=== PATIENT | female | born 1970 | race Caucasian/White ===

== ENCOUNTER 2019-02-19 07:33 | Emergency (ER) | payer BC, SELFPAY ==
[2019-02-19 07:36] VITALS: BP 167/85; PULSE 84; RESP 16; TEMP 36.6; O2SAT 99; BMI 26.2
[2019-02-19 07:47] VITALS: O2SAT 98
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
[2019-02-19] MEDS: oxyCODONE 5 MG Tablet 10 MG PO (08:02)
[2019-02-19] MEDS: Ketorolac 60 MG/2 ML Vial IM (08:02)
[2019-02-19 09:50] VITALS: BP 174/95; PULSE 83; RESP 16; O2SAT 97
== END 2019-02-19 09:51 | disposition home or self-care (01) ==
PROVIDERS: Emergency Provider Emergency Medicine; Family Provider Family Medicine; PCP Family Medicine
DX: S16.1XXA Strain of muscle, fascia and tendon at neck level, initial encounter (principal); S40.012A Contusion of left shoulder, initial encounter; S70.11XA Contusion of right thigh, initial encounter; R06.00 Dyspnea, unspecified; V43.52XA Car driver injured in collision with other type car in traffic accident, initial encounter; Y93.9 Activity, unspecified; Y92.9 Unspecified place or not applicable; I10 Essential (primary) hypertension; F41.9 Anxiety disorder, unspecified; F32.9 Major depressive disorder, single episode, unspecified; Z79.899 Other long term (current) drug therapy; Z72.0 Tobacco use
CPT/HCPCS: 71101; 72040; 73030; 96372; 99283

== ENCOUNTER 2019-02-26 23:45 | Emergency (ER) | payer BC, SELFPAY ==
[2019-02-26 23:46] VITALS: BP 164/102; PULSE 102; RESP 15; TEMP 36.8; BMI 26.2
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
[2019-02-27] MEDS: Ondansetron 4 MG/2 ML Vial IV (00:54)
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
[2019-02-27] MEDS: Morphine 4 MG/ML Syringe IV (00:55)
--- NOTE | 2019-02-27 02:04 | ED.DEP ---
ED Disposition - Plan for ED Patient: Instructions: ED Contusion Chest Wall Prescriptions: Oxycodone HCl/Acetaminophen [Percocet 5/325] 1 tablet PO Q6H PRN PRN 2 Days #8 tablet PRN Reason: Pain Referrals: Josh Mazariegos MD [Primary Care Provider] -
[2019-02-27] MEDS: oxyCODONE 5 MG Tablet PO (02:31)
[2019-02-27 02:34] VITALS: RESP 16
== END 2019-02-27 02:35 | disposition home or self-care (01) ==
LOC: ED 02-27 00:40
PROVIDERS: Emergency Provider Emergency Medicine; Family Provider Family Medicine; PCP Family Medicine
DX: S20.212A Contusion of left front wall of thorax, initial encounter (principal); R20.2 Paresthesia of skin; R59.0 Localized enlarged lymph nodes; M41.84 Other forms of scoliosis, thoracic region; V89.2XXA Person injured in unspecified motor-vehicle accident, traffic, initial encounter; Y93.9 Activity, unspecified; Y92.9 Unspecified place or not applicable; K21.9 Gastro-esophageal reflux disease without esophagitis; I10 Essential (primary) hypertension; Z79.899 Other long term (current) drug therapy
CPT/HCPCS: 71275; 96374; 96375; 99284; Q9967; A4216; J2405

== ENCOUNTER 2019-06-21 10:30 | Emergency (ER) | payer SELFPAY ==
[2019-06-21 10:32] VITALS: BP 153/93; PULSE 103; RESP 18; TEMP 36.2; O2SAT 98; BMI 25.4
--- NOTE | 2019-06-21 10:48 | CT_ITS ---
STUDY: CT ABDOMEN AND PELVIS WITH CONTRAST REASON FOR EXAM: Female, 48 years old. Central low back pain RADIATION DOSAGE (If Supplied By Facility): CTDIvol = ( 10.19 ) mGy, DLP = ( 437.27 ) mGycm TECHNIQUE: Transaxial images were obtained from the dome of the diaphragm to the symphysis pubis without oral contrast. 100 IV/Oral Isovue 250 was administered. Sagittal and coronal images were reconstructed. Individualized dose optimization techniques were used for this CT. COMPARISON: None. FINDINGS: The visualized lung bases are unremarkable. The visualized portions of the heart are within normal limits. Normal liver. Normal gallbladder and extrahepatic biliary system. Normal spleen. Normal pancreas. Normal bilateral adrenal glands. Normal right kidney. Normal left kidney. Normal visualized stomach. Normal small intestine. Normal colon. The appendix is visualized and appears normal. Normal abdominal aorta. Normal inferior vena cava. Normal retroperitoneum. Normal urinary bladder. Normal abdominal wall. There is levoscoliosis of the lumbar spine and mild dextroscoliosis of the lumbar spine. There is scoliosis rods of the thoracic spine. There is no acute fracture or subluxation CT/Abdomen/Pelvis WITH Contrast IMPRESSION: No acute abdominal or pelvic pathology. No fracture. Electronically Signed: Farhan Yan, at 12:57 EDT Tel , Service support ,
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
[2019-06-21 11:12] LABS: Absolute Lymphocyte Count 2.23 X10^3/uL (0.83-4.51); Absolute Neutrophil Count 4.1 X10^3/uL (2.0-7.7); Basophil# 0.02 X10^3/uL; Basophil% 0.3 % (0-1); Eosinophil# 0.13 X10^3/uL; Eosinophils% 1.9 % (0-5); Hematocrit 44.8 % (37-47); Hemoglobin 14.8 g/dL (12.0-15.0); Lymphocyte # 2.23 X10^3/ul (4.0); Lymphocyte % 32.7 % (19-41); Mean Corpuscular Hgb 30.6 pg (27.0-32.0); Mean Corpuscular Volume 92.6 fL (81-99); Mean Platelet Vol. 9.5 fl (6.2-12.0); Monocyte# 0.33 X10^3/uL; Monocyte% 4.8 % (0-10); NRBC Flagged by Analyzer 0 % (0-5); Neutrophil # 4.09 X10^3/uL (2.7-7.7); Neutrophil % 60.2 % (47-70); Platelet Count 313 K/mm3 (150-450); RBC Distribution Width CV 12.3 % (11.6-14.6); RBC Distribution Width SD 42.3 fl (35.1-43.9); Red Blood Count 4.84 M/mm3 (4.2-5.4); White Blood Count 6.8 K/mm3 (4.4-11.0)
[2019-06-21 11:27] LABS: AST(SGOT) 13 U/L (15-37); Alanine Aminotransfer ALT/SGPT 20 U/L (13-56); Albumin, Serum 3.9 g/dL (3.2-5.0); Alkaline Phosphatase 47 U/L (45-117); Anion Gap 3 (5-15); BUN 11 mg/dL (7-18); BUN/Creat Ratio 13.5 RATIO (10-20); Calcium,Total 9.5 mg/dL (8.5-10.1); Chloride 106 mmol/L (98-107); Creatinine, Serum 0.82 mg/dL (0.55-1.02); EST Glomerular Filtration Rate 80 mL/min (>60); Est Glom Filt Rate - Afr Amer 96 mL/min (>60); Globulin 3.8 g/dL (2.2-4.2); Glucose 126 mg/dL (74-106); Potassium 3.7 mmol/L (3.5-5.1); Protein, Total 7.7 g/dL (6.4-8.2); Sodium Level 139 mmol/L (136-145)
[2019-06-21 12:39] VITALS: BP 173/77; PULSE 83; RESP 16; O2SAT 98
[2019-06-21 13:18] VITALS: BP 171/71; PULSE 89; RESP 16; O2SAT 99
== END 2019-06-21 13:19 | disposition home or self-care (01) ==
PROVIDERS: Emergency Provider Emergency Medicine; Family Provider Family Medicine; PCP Family Medicine
DX: R10.31 Right lower quadrant pain (principal); R10.32 Left lower quadrant pain; R59.0 Localized enlarged lymph nodes; R63.4 Abnormal weight loss; R61 Generalized hyperhidrosis; R11.0 Nausea; R19.7 Diarrhea, unspecified; K21.9 Gastro-esophageal reflux disease without esophagitis; M54.5 Low back pain; F32.9 Major depressive disorder, single episode, unspecified; Z79.899 Other long term (current) drug therapy; F17.200 Nicotine dependence, unspecified, uncomplicated
CPT/HCPCS: 74177; 80053; 85025; 99283; Q9967; A4216

== ENCOUNTER → 2019-12-13 00:22 | Outpatient (REF) | payer SELFPAY | LOC: EDREF 00:22 | PROVIDERS: PCP Family Medicine; Visit Provider Emergency Medicine | DX: Z00.00 Encounter for general adult medical examination without abnormal findings (principal) ==

== ENCOUNTER 2020-06-03 21:59 | Emergency (ER) | payer OTHER, SELFPAY ==
[2020-06-03 22:01] VITALS: BP 157/92; PULSE 103; RESP 15; TEMP 36.6; O2SAT 96; BMI 24.5
--- NOTE | 2020-06-03 22:15 | ED.DCSUM_ITS ---
History of Present Illness Chief Complaint: Itching Informant: Patient Onset: Days Context: Gradual Onset Timing: Intermittent Current Severity: Moderate Maximum Severity: Moderate Narrative: The patient is an otherwise healthy 49-year-old female who presents to the emergency department with diffuse itching and bites. 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 She thinks that someone may have had bedbugs or scabies. She states that they did treat the area. About a week ago, she began to notice small bites on her arms and legs. She states over the past week they have worsened. She denies any fevers or chills. She denies any drainage from the area. She has tried topical cortisone with little improvement. Prior similar symptoms: No Recent Illness/Hospitalization: No Past Medical History - Allergies and Home Meds Allergies/Adverse Reactions: Allergies acetaminophen [From [place]] Adverse Reaction (Verified 06/03/20 22:05) Nausea/Vom/Diarrhea erythromycin base Adverse Reaction (Verified 06/03/20 22:05) Other NIGHTMARES hydrocodone [From [place]] Adverse Reaction (Verified 06/03/20 22:05) Nausea/Vom/Diarrhea ibuprofen [From Motrin] Adverse Reaction (Verified 06/03/20 22:05) Nausea/Vom/Diarrhea Primary Care Physician: Josh Mazariegos MD [Primary Care Provider] - Prior records reviewed: Yes Past Medical History: None Surgical History: no surgical history Smoking Status: Current some day smoker Review of Systems General: Denies: Chills, Fever, Sweats Eyes: Denies: Visual changes - bilaterally, Diplopia ENT: Denies: Rhinorrhea, Sore throat Cardiovascular: Denies: Chest pain, Palpitations Respiratory: Denies: Dyspnea, Cough, Dyspnea on exertion Gastrointestinal: Denies: Abdominal pain, Nausea, Vomiting, Diarrhea, Melena, Hematochezia Genitourinary: Denies: Dysuria, Hematuria, Frequency Musculoskeletal: Denies: Back pain, Extremity Pain Skin: Reports: Rash. Denies: Wounds Neurological: Denies: Headache, Weakness, Numbness Physical Exam Vital Signs/Narrative: Vital Signs Temp Pulse Resp BP Pulse Ox 06/03/20 22:01 97.9 F 103 H 15 157/92 H 96 Inital Vital Signs reviewed: Yes General: Well nourished, Well developed, No Acute Distress Head: Normocephalic, Atraumatic Eyes: Perrl, EOMI ENT: Moist mucous membranes, No rhinorrhea Neck: Supple, Nontender Cardiovascular: Regular rate, Regular rhythm, No murmurs Respiratory: No distress, CTA bilaterally, Chest nontender Abdomen: Soft, Nontender, Nondistended, Normal bowel sounds Back: Nontender, Normal Inspection Extremities: Nontender, No edema Skin: Normal color, Rash - Patient has multiple small areas of urticaria with central clearing into visible mites. There is no significant cellulitis. Neurological: Alert, Oriented x3, Cranial nerves II-XII grossly intact, Normal Strength, Normal Sensation Psychological: Normal affect, Normal Mood Diagnostic/Tx/Re-eval - Medical Decision Making Clinically, this does seem most consistent with scabies. I am going to treat the patient with permethrin. She does have rather significant immune response with urticaria. I will place her on 4 days of prednisone along with Vistaril to help with the itching. She was counseled on hygiene. The patient will be discharged home. Impression 1. Scabies ED Disposition - Plan for ED Patient: Instructions: Scabies Prescriptions: Prednisone [Deltasone] 40 mg PO DAILY #6 tab Prescription Printed Permethrin 5% [Permethrin] 60 gm TP X1 #1 cream..g. Prescription Printed hydrOXYzine pamoate capsule [Vistaril] 50 mg PO TID PRN PRN #30 cap PRN Reason: Itching Prescription Printed Referrals: Josh Mazariegos MD [Primary Care Provider] -
[2020-06-03] MEDS: predniSONE 20 MG Tablet 40 MG PO (22:27)
[2020-06-03] MEDS: hydrOXYzine PAM 25 MG Capsule 50 MG PO (22:47)
== END 2020-06-03 22:49 | disposition home or self-care (01) ==
LOC: ED 22:20
PROVIDERS: Emergency Provider Emergency Medicine; PCP Family Medicine
DX: B86 Scabies (principal); F17.200 Nicotine dependence, unspecified, uncomplicated
CPT/HCPCS: 99283

== ENCOUNTER 2020-06-05 20:04 | Emergency (ER) | payer OTHER, SELFPAY ==
[2020-06-05 20:04] VITALS: BP 161/103; PULSE 100; RESP 18; TEMP 36.4; O2SAT 98; BMI 24.3
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
--- NOTE | 2020-06-05 22:36 | ED.RN ---
PT LEFT AT 2135.
== END 2020-06-05 21:35 | disposition left against medical advice (07) ==
LOC: ED 21:49
PROVIDERS: Emergency Provider Emergency Medicine; PCP Family Medicine
DX: Z53.21 Procedure and treatment not carried out due to patient leaving prior to being seen by health care provider (principal)

== ENCOUNTER 2020-09-01 10:27 | Emergency (ER) | payer MEDICAID, SELFPAY ==
[2020-09-01 10:28] VITALS: BP 126/112; PULSE 100; RESP 18; TEMP 36.4; O2SAT 99; BMI 25.4
--- NOTE | 2020-09-01 11:10 | ED.DCSUM_ITS ---
History of Present Illness Informant: Patient Onset: Month(s) Context: Gradual Onset Timing: Continuous Quality: aching Location: bilateral wrists Current Severity: Severe Maximum Severity: Severe Worsened by: movement Relieved by: rest Associated Symptoms: denies Narrative: 50-year-old female who denies any significant past medical history presents to the emergency department with bilateral wrist pain. Patient states that she thinks she has carpal tunnel syndrome. 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 She is pretty confident it is carpal tunnel syndrome but has not gotten official diagnosis from a physician. No numbness tingling or weakness or trauma. She gets pain and swelling mostly after working throughout the day. No trauma. No constitutional symptoms. No rash. Prior similar symptoms: Yes Recent Illness/Hospitalization: No <Regino Davidson - Last Filed: 09/01/20 11:10> <Lionel Latham - Last Filed: 09/01/20 12:20> Chief Complaint: Upper Extremity Injury Past Medical History Prior records reviewed: Yes Past Medical History: None Surgical History: no surgical history Lives: With Family Smoking Status: Former smoker Alcohol: Occasional Drugs: None <Regino Davidson - Last Filed: 09/01/20 11:10> <Lionel Latham - Last Filed: 09/01/20 12:20> - Allergies and Home Meds Allergies/Adverse Reactions: Allergies acetaminophen [From [place]] Adverse Reaction (Verified 09/01/20 10:31) Nausea/Vom/Diarrhea erythromycin base Adverse Reaction (Verified 09/01/20 10:31) Other [place] hydrocodone [From [place]] Adverse Reaction (Verified 09/01/20 10:31) Nausea/Vom/Diarrhea ibuprofen [From Motrin] Adverse Reaction (Verified 09/01/20 10:31) Nausea/Vom/Diarrhea lorazepam [From Ativan] Adverse Reaction (Verified 09/01/20 10:31) Low blood pressure Primary Care Physician: Josh Mazariegos MD [Primary Care Provider] - Christopher Acosta MD [STAFF PHYSICIAN] - As soon as possible Review of Systems All systems negative except as indicated General: Denies: Chills, Fever, Sweats Eyes: Denies: Visual changes - bilaterally, Diplopia ENT: Denies: Rhinorrhea, Sore throat Cardiovascular: Denies: Chest pain, Palpitations Respiratory: Denies: Dyspnea, Cough, Dyspnea on exertion Gastrointestinal: Denies: Abdominal pain, Nausea, Vomiting, Diarrhea, Melena, Hematochezia Genitourinary: Denies: Dysuria, Hematuria, Frequency Musculoskeletal: Reports: Swelling, Extremity Pain. Denies: Myalgias, Arthralgias, Neck pain, Back pain Skin: Denies: Rash, Abscess, Abrasions, Wounds Neurological: Denies: Headache, Weakness, Numbness <Regino Davidson - Last Filed: 09/01/20 11:10> Physical Exam Vital Signs/Narrative: Vital Signs Temp Pulse Resp BP Pulse Ox 09/01/20 10:28 97.6 F L 100 18 126/112 H 99 Inital Vital Signs reviewed: Yes General: Well nourished, Well developed, No Acute Distress Head: Normocephalic, Atraumatic Eyes: Perrl, EOMI ENT: Moist mucous membranes, No rhinorrhea Neck: Supple, Nontender Cardiovascular: Regular rate, Regular rhythm, No murmurs Respiratory: No distress, CTA bilaterally, Chest nontender Abdomen: Soft, Nontender, Nondistended, Normal bowel sounds Back: Nontender, Normal Inspection Extremities: - - Patient has no swelling of either wrist. No redness. No warmth. Normal active range of motion. No rash. Normal radial pulses bilaterally. Normal capillary refill and sensation of all 5 fingers on both hands. Negative Tinel's sign bilaterally. There is no sign of trauma. Skin: Normal color, No rash Neurological: Alert, Oriented x3, Cranial nerves II-XII grossly intact, Normal Strength, Normal Sensation Psychological: Normal affect, Normal Mood <Regino Davidson - Last Filed: 09/01/20 11:10> Vital Signs/Narrative: Vital Signs Temp Pulse Resp BP Pulse Ox 09/01/20 10:28 97.6 F L 100 18 126/112 H 99 <Lionel Latham - Last Filed: 09/01/20 12:20> Diagnostic/Tx/Re-eval - Medical Decision Making Discussed with patient at this time that we are not completely certain her symptoms are due to carpal tunnel syndrome. She states that she has been diagnosed with arthritis in the past. Discussed this could be arthritis. Patient states that she needs something for pain because she has been taking Aleve and Tylenol does not work for her and she does not think that any gabapentin tramadol or [place] will help her pain either and think she needs Percocet. Discussed with patient at this time the acute treatment of arthritis is not Percocet. She was offered steroids. She states that she went to the urgent care 2 days ago they put her on steroids and it does not help. Discussed with patient we will have her take anti-inflammatories give her bilateral wrist splints and have her follow-up with orthopedics. <Regino Davidson - Last Filed: 09/01/20 11:10> - Medical Decision Making Seen and evaluated independently and in conjunction with physician assistant executive housekeeper. Agree with notes above unless documented otherwise. This patient has pressured speech, and a fairly passive-aggressive attitude regarding pain medications. With regards to her wrists, she states they have bothered her for over a year along with tingling in both hands all fingers for that period of time, but much worse in the past week or 2. She states she went to urgent care and he put her on some prednisone but it did not help at all, it also did not necessarily make anything worse. She states that they are warm and swollen which I do not objectively appreciate. There is no erythema, she has good range of motion of them although she states that it hurts when she does so, and a negative Tinel's over the median nerve tunnel bilaterally. Her Phalen's test is negative for paresthesias, just increases her wrist discomfort bilaterally. She states that she saw orthopedics and had a scope of one of her knees because of severe bilateral arthritis for someone her age. Unknown if that is related to the arthralgias she is having in her wrist, but I do not think she has septic arthritis, I think it is less likely that she has acute gout since prednisone did not help, and I do not think she needs narcotics for chronic pain which we discussed with her. We offered her anti-inflammatories and response along with ice packs which she had requested. She was then asking for a refill on scabies medication which she has no evidence of at this time so we declined that. <Lionel Latham - Last Filed: 09/01/20 12:20> ED Disposition <Regino Davidson - Last Filed: 09/01/20 11:10> <Lionel Latham - Last Filed: 09/01/20 12:20> - Plan for ED Patient: Disposition: Home or Assisted Living Diagnosis: Bilateral wrist pain, History of arthritis Instructions: ED Acute Pain [facility] Prescriptions: Naproxen [Naprosyn] 500 mg PO BID #14 tab Prescription Printed Referrals: Josh Mazariegos MD [Primary Care Provider] - Christopher Acosta MD [STAFF PHYSICIAN] - As soon as possible
--- NOTE | 2020-09-01 11:38 | ED.RN ---
PT REFUSED THE PRESCRIPTION STATING SHE CAN'T TAKE IT.
== END 2020-09-01 11:39 | disposition home or self-care (01) ==
PROVIDERS: Emergency Provider Physician Assistant Medical; PCP Family Medicine
DX: M25.531 Pain in right wrist (principal); M25.532 Pain in left wrist; M19.90 Unspecified osteoarthritis, unspecified site; Z87.891 Personal history of nicotine dependence
CPT/HCPCS: 99283

== ENCOUNTER 2022-03-11 01:47 | Emergency (ER) | payer MEDICAID, SELFPAY ==
[2022-03-11 01:54] VITALS: BP 156/81; PULSE 109; RESP 16; TEMP 36.7; O2SAT 100; BMI 23.0
--- NOTE | 2022-03-11 02:10 | CT_ITS ---
STUDY: CT BRAIN WITHOUT CONTRAST REASON FOR EXAM: Female, 51 years old. head injury RADIATION DOSAGE (If Supplied By Facility): CTDIvol = ( 44.99 ) mGy, DLP = ( 796.11 ) mGycm TECHNIQUE: Transaxial CT imaging of the brain was performed without administration of intravenous contrast material. Individualized dose optimization techniques were used for this CT. COMPARISON: No relevant priors. FINDINGS: Normal soft tissue structures. Normal calvarium. Normal size ventricles and extra-axial spaces for the patient''s age. Normal white matter tracts of the cerebral hemispheres. Normal basal ganglia and thalami. Normal brainstem. Normal cerebellum. There is no intracranial hemorrhage. There are no findings of an acute ischemic infarction. Normal visualized paranasal sinuses. CT/Brain/Head without Contrast IMPRESSION: Normal unenhanced CT scan of the brain. Electronically Signed: Rashaun Metcalf MD at 2:35 EDT ,
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
[2022-03-11] MEDS: Acetaminophen 325 MG Tablet 650 MG PO (02:16)
[2022-03-11 03:05] VITALS: BP 148/79; PULSE 100; RESP 16; O2SAT 97
== END 2022-03-11 03:07 | disposition home or self-care (01) ==
PROVIDERS: Emergency Provider Emergency Medicine; PCP Family Medicine; Visit Provider Emergency Medicine
DX: S00.83XA Contusion of other part of head, initial encounter (principal); I10 Essential (primary) hypertension; Z79.899 Other long term (current) drug therapy; Z87.891 Personal history of nicotine dependence; S40.811A Abrasion of right upper arm, initial encounter; S40.812A Abrasion of left upper arm, initial encounter; S00.81XA Abrasion of other part of head, initial encounter; S40.212A Abrasion of left shoulder, initial encounter; W22.8XXA Striking against or struck by other objects, initial encounter; W57.XXXA Bitten or stung by nonvenomous insect and other nonvenomous arthropods, initial encounter; R23.4 Changes in skin texture
CPT/HCPCS: 70450; 99282

== ENCOUNTER 2022-06-27 23:07 | Emergency (ER) | payer MEDICAID, SELFPAY ==
[2022-06-27 23:08] VITALS: BP 178/98; PULSE 99; RESP 16; TEMP 36.9; O2SAT 100; BMI 22.6
--- NOTE | 2022-06-27 23:43 | EX.ED.DYSGE1 ---
HPI History of Present Illness Chief Complaint: General Illness Informant: patient Onset/Context/Timing Onset: Days Context: Gradual Onset Current Severity: Mild Maximum Severity: Moderate Narrative Narrative: Patient presents with multiple complaints. She states been feeling very weak and tired over the past couple days. She had a mild cough with sore throat starting to lose her voice. She states she occasionally feels like she is wheezing but cannot find her albuterol inhaler at home. She has not noted a fever. She also complains of some pain in her right foot. She states she has nerve damage between her toes and will require cortisone injections periodically. She states that she needs to see her foot doctor for this. [facility] Medical History Hypertension Home Medications bupropion HCl 150 mg tablet,12 hr sustained-release 150 mg PO BID 02/19/19 [History Last Taken 08/31/20] etonogestrel 0.12 mg-ethinyl estradiol 0.015 mg/24 hr vaginal ring (NuvaRing) 1 ea VG X1 02/19/19 [History Last Taken Unknown] lisinopril 10 mg tablet (Prinivil) 10 mg PO DAILY 02/19/19 [History Last Taken 09/01/20] permethrin 5 % topical cream 60 gm TP X1 ##1 06/03/20 [Rx Last Taken 08/31/20] naproxen 500 mg tablet 500 mg PO BID #14 tabs 09/01/20 [Rx Last Taken Unknown] permethrin 5 % topical cream 1 applic topical Q14D 2 doses #60 grams 03/11/22 [Rx Last Taken Unknown] naproxen 500 mg tablet (Naprosyn) 500 mg PO BID PRN pain #20 tabs 06/28/22 [Rx Last Taken Unknown] Allergy/AdvReac Type Severity Reaction Status Date / Time acetaminophen [From [place]] AdvReac Nausea/Vom/ Verified 06/27/22 23:07 Diarrhea erythromycin base AdvReac Other Verified 06/27/22 23:07 hydrocodone [From [place]] AdvReac Nausea/Vom/ Verified 06/27/22 23:07 Diarrhea ibuprofen [From Motrin] AdvReac Nausea/Vom/ Verified 06/27/22 23:07 Diarrhea lorazepam [From Ativan] AdvReac Low blood Verified 06/27/22 23:07 pressure Social History Smoking Status: Former smoker ROS ROS ED Constitutional Constitutional ED: Denies chills or fever(s) Eyes Eyes: Denies change in vision or discharge from eye(s) ENT ENT ED: Reports sore throat; Denies discharge from eye(s) or rhinorrhea Cardiovascular Cardiovascular: Denies chest pain or palpitations Respiratory/Chest Respiratory/Chest: Reports cough; Denies dyspnea Gastrointestinal Gastrointestinal: Reports diarrhea and nausea; Denies abdominal pain or vomiting Genitourinary Genitourinary ED: Denies difficulty urinating or dysuria Musculoskeletal Musculoskeletal: Reports extremity pain; Denies back pain Integumentary Denies Abrasions or rash Neurologic Neurologic: Reports weakness; Denies headache(s) Psychiatric Psychiatric: Denies anxiety or depression Allergic/Immunologic Allergic/Immunologic ED: Denies lip swelling or urticaria EXAM Physical Exam Const Vital Signs: 06/27/22 23:08 Temperature 98.4 F Temperature Source Temporal Pulse Rate 99 Respiratory Rate 16 Blood Pressure 178/98 H Blood Pressure Mean 124 Pulse Ox 100 Oxygen Delivery Method Room Air Positive well nourished and well developed General Appearance ED: well developed HEENT Reports TM's clear and moist mucous membranes HEENT Narrative: Posterior pharynx exam normal. Uvula midline. Patient speaks with a strong voice and is tolerating secretions well. Tympanic Membrane ED: Yes TM's clear Eyes PERRL and EOMs intact bilaterally Neck no lymphadenopathy Chest Wall inspection of chest normal and palpation of chest normal Resp normal respiratory effort and clear to auscultation bilaterally Cardio regular rate and regular rhythm GI normal to inspection, nondistended, normoactive bowel sounds and non-tender Neuro oriented x3 Sensorium / Orientation: alert Psych mental status grossly normal Skin no rashes or lesions noted MDM MDM MDM Narrative Medical decision making narrative: Portable chest x-ray obtained along with COVID test. Treatment and Re-Evaluation Narrative: Rapid COVID test is negative. Chest x-ray per my interpretation shows chronic changes with no focal infiltrate. Test results discussed with the patient. I believe she has another viral illness. Supportive care is discussed. I will write her for naproxen which she has done well with in the past. Discharge Plan Triage Chief Complaint: General Illness ED Provider: Dana Anaya Dx/Rx/DC Orders Clinical Impression: Viral syndrome Instructions: ED Viral Syndrome (Adult) Prescriptions: New naproxen [Naprosyn] 500 mg tablet 500 mg PO BID PRN (Reason: pain) Qty: 20 0RF No Action bupropion HCl 150 MG tablet sustained-release 12 hr 150 mg PO BID lisinopril [Prinivil] 10 MG tablet 10 mg PO DAILY etonogestrel-ethinyl estradiol [NuvaRing] 1 EACH ring 1 ea VG X1 permethrin 60 GM cream 60 gm TP X1 Qty: 1 0RF naproxen 500 MG tablet 500 mg PO BID Qty: 14 0RF permethrin 5 % cream 1 applic topical Q14D Qty: 60 0RF Rx Instructions: apply second treatment 14 days after first treatment if live insects remain Primary Care Provider: Josh Mazariegos Referrals: Josh Mazariegos MD [Primary Care Provider] - 1 Week if not improving Disposition Disposition: Home, Self Care
--- NOTE | 2022-06-27 23:45 | RAD_ITS ---
EXAM: XR CHEST, 1 VIEW CLINICAL INDICATION: cough TECHNIQUE: Frontal view of the chest. This report was created using [employer] report generation technology. COMPARISON: 02/19/2019. FINDINGS: LUNGS AND PLEURAL SPACES: Unremarkable. No consolidation or edema. No pneumothorax. No effusion. HEART: Unremarkable. Cardiac silhouette not enlarged. MEDIASTINUM: Central airways and mediastinal contour are unremarkable. BONES/JOINTS: Stabilization rods in the thoracolumbar spine with moderate levoscoliosis. SOFT TISSUES: Unremarkable. RAD/Chest 1 View (Portable) IMPRESSION: No acute cardiopulmonary abnormality. Electronically Signed: Jeffrey Estevez MD at 0:22 EDT ,
[2022-06-28] MEDS: Naproxen 500 MG Tablet PO (00:23)
[2022-06-28 00:27] VITALS: BP 171/106
== END 2022-06-28 00:27 | disposition home or self-care (01) ==
PROVIDERS: Emergency Provider Emergency Medicine; PCP Family Medicine; Visit Provider Emergency Medicine
DX: B34.9 Viral infection, unspecified (principal); R05.9 Cough, unspecified; J02.9 Acute pharyngitis, unspecified; I10 Essential (primary) hypertension; Z79.899 Other long term (current) drug therapy; Z87.891 Personal history of nicotine dependence
CPT/HCPCS: 71045; 87811; 99283

== ENCOUNTER 2023-03-15 10:38 | Emergency (ER) | payer MEDICAID, SELFPAY ==
[2023-03-15 10:39] VITALS: BP 174/89; PULSE 108; RESP 18; TEMP 35.9; O2SAT 95
[2023-03-15 10:44] VITALS: BMI 28.7
--- NOTE | 2023-03-15 10:51 | ED.VIS.BACK ---
HPI History of Present Illness Chief Complaint: Back Informant: patient Onset/Context/Timing Onset: Days (3) Context: - (awoke w/ the pain) Timing: Continuous Quality: Aching Location: Lumbar (right) Current Severity: Severe Maximum Severity: Severe Worsened by: improves with Movement, Ambulation and Bending Relieved by: Remaining Still Associated Symptoms Associated Symptoms: Negative for Numbness, Tingling, Radiation to Right Leg, Radiation to Left Leg, Abdominal Pain, Dysuria, Unable to Ambulate, Unable to Transfer, Urinary Retention, Urinary Incontinence, Constipation or Fecal Incontinence Narrative Narrative: Patient presents with a chief complaint that her sciatica is worse. States 3 days ago she woke up with pain in her right low back, does not radiate into either lower extremity, she denies any bowel or bladder dysfunction it hurts more to move especially to walk up steps, she denies any injury or repetitive movements or heavy lifting the day before she woke up with this that she can recall. She has had pain in her back in the past that radiated down to her foot that was diagnosed clinically as sciatica, she has no radiation into the leg or the foot in the past 3 days. She denies any weakness or numbness in the lower extremities. She does have a history of having had back surgery due to a trauma when she was a child and states she has Brunson rods. [facility] Medical History (Updated 03/15/23 @ 11:[address] Lionel Latham MD) Hypertension Home Medications bupropion HCl 150 mg tablet,12 hr sustained-release 150 mg PO BID 02/19/19 [History Last Taken 08/31/20] etonogestrel 0.12 mg-ethinyl estradiol 0.015 mg/24 hr vaginal ring (NuvaRing) 1 ea VG X1 02/19/19 [History Last Taken Unknown] lisinopril 10 mg tablet (Prinivil) 10 mg PO DAILY 02/19/19 [History Last Taken 09/01/20] permethrin 5 % topical cream 60 gm TP X1 ##1 06/03/20 [Rx Last Taken 08/31/20] naproxen 500 mg tablet 500 mg PO BID #14 tabs 09/01/20 [Rx Last Taken Unknown] permethrin 5 % topical cream 1 applic topical Q14D 2 doses #60 grams 03/11/22 [Rx Last Taken Unknown] naproxen 500 mg tablet (Naprosyn) 500 mg PO BID PRN pain #20 tabs 06/28/22 [Rx Last Taken Unknown] oxycodone-acetaminophen 5 mg-325 mg tablet (Percocet) 1 tab PO Q8H PRN pain 2 days #6 tabs 03/15/23 [Rx Last Taken Unknown] Allergy/AdvReac Type Severity Reaction Status Date / Time acetaminophen [From [place]] AdvReac Nausea/Vom/ Verified 03/15/23 10:39 Diarrhea erythromycin base AdvReac Other Verified 03/15/23 10:39 hydrocodone [From [facility]] AdvReac Nausea/Vom/ Verified 03/15/23 10:39 Diarrhea ibuprofen [From [place]] AdvReac Nausea/Vom/ Verified 03/15/23 10:39 Diarrhea lorazepam [From Ativan] AdvReac Low blood Verified 03/15/23 10:39 pressure Surgical History (Updated 03/15/23 @ 10:[address] Lionel Latham MD) History of back surgery Social History Smoking Status: Current every day smoker tobacco type: cigarettes ROS ROS ED Constitutional Constitutional ED: Denies chills or fever(s) Gastrointestinal Gastrointestinal: Denies abdominal pain, constipation, fecal incontinence, nausea or vomiting Genitourinary Genitourinary ED: Reports other Details: no urinary retention ; Denies abdominal discomfort or urinary incontinence Musculoskeletal Musculoskeletal: Reports as per HPI and back pain; Denies neck pain Integumentary Denies rash or wounds Neurologic Neurologic: Denies headache(s), paresthesias or weakness EXAM Physical Exam Const Vital Signs: 03/15/23 10:39 Temperature 96.6 F L Temperature Source Temporal Pulse Rate 108 H Respiratory Rate 18 Blood Pressure 174/89 H Blood Pressure Mean 117 Pulse Ox 95 Oxygen Delivery Method Room Air Positive well nourished and well developed General Appearance ED: well developed and NAD HEENT Negative for trauma or tenderness Eyes PERRL and EOMs intact bilaterally Neck full ROM and supple GI normal to inspection, nondistended, normoactive bowel sounds, soft to palpation and non-tender Back/Spine normal to inspection Back/Spine Narrative: Main area of right lower back tenderness is at the right SI joint. There is minimal tenderness near the midline, there is no step-off or crepitance or rash or any other areas of bony tenderness. No tenderness in the lateral buttock/sciatic notch. Lumbar Spine / Lower Back: paraspinal muscle tenderness and straight leg raise negative bilaterally; Negative for ROM limited or lumbar spinal tenderness Extremity normal to inspection, full ROM and no pedal edema Neuro oriented x3 and no sensory deficits noted Sensorium / Orientation: alert Motor Exam: strength 5/5 throughout and clonus absent Deep Tendon Reflexes: Rt Patellar (L4): 2+, Lt Patellar (L4): 2+, Rt Ankle (S1): 2+ and Lt Ankle (S1): 2+ Deep Tendon Reflexes Back: Rt Patellar (L4): 2+, Lt Patellar (L4): 2+, Rt Ankle (S1): 2+ and Lt Ankle (S1): 2+ Plantar Reflex: Downgoing: bilateral Psych mental status grossly normal and thought process normal Skin no rashes or lesions noted and no wounds MDM MDM MDM Narrative Medical decision making narrative: I obtained a lumbosacral x-ray series, 3 views of mitral rotation showed chronic changes including spondylolisthesis L4 on L5 that looks relatively mild, but nothing acute as far as a compression fracture or major subluxation. Radiology in agreement. Patient admits that she is here for a work note for today because being on her feet is very painful with this condition, and in addition she make sure to note that her pressure is high probably because of the severity of the pain which is happened to her before. She is saying that she is not able to tolerate hydrocodone and for prescription analgesics, she needs oxycodone. I offered her tramadol, she states that does not help. I advised her that this is probably sacroiliitis, certainly it is not sciatica since it does not involve her lower extremity at all, and she certainly does not have any signs or symptoms of cauda equina syndrome here, and I reassured her I think this is something uncomfortable and not dangerous. With regards to sacroiliitis, it does not tend to significantly improve, such as sciatica, with narcotics, and I am not can to prescribe her a lot she understands that, her OARRS report was reviewed and essentially negative for the last year or 2, so I am okay prescribing her a short course which I will do but advised anti-inflammatories and outpatient follow-up with her PCP, and/or physical therapy and chiropractic. Radiography Diagnostic Testing: Clinical Impression(s) from Imaging Studies Lumbar Spine X-Ray 03/15/23 10:56 IMPRESSION: Grade 1 anterior spondylolisthesis of L4 on L5. Multilevel degenerative disc disease. Postsurgical changes of the thoracolumbar spine. Electronically Signed: Courtney Kingston MD at 11:27 EDT , Discharge Plan Triage Chief Complaint: Back Other Complaint: Lower Extremity Injury ED Provider: Lionel Latham Dx/Rx/DC Orders Clinical Impression: Sacroiliitis Instructions: ED Sacroiliitis Prescriptions: New oxycodone-acetaminophen [Percocet] 5-325 mg tablet 1 tab PO Q8H PRN (Reason: pain) 2 Days Qty: 6 0RF No Action bupropion HCl 150 MG tablet sustained-release 12 hr 150 mg PO BID lisinopril [Prinivil] 10 MG tablet 10 mg PO DAILY etonogestrel-ethinyl estradiol [NuvaRing] 1 EACH ring 1 ea VG X1 permethrin 60 GM cream 60 gm TP X1 Qty: 1 0RF naproxen 500 MG tablet 500 mg PO BID Qty: 14 0RF permethrin 5 % cream 1 applic topical Q14D Qty: 60 0RF Rx Instructions: apply second treatment 14 days after first treatment if live insects remain naproxen [Naprosyn] 500 mg tablet 500 mg PO BID PRN (Reason: pain) Qty: 20 0RF Stand Alone Forms: ED Work / School Excuse Primary Care Provider: Josh Mazariegos Referrals: Josh Mazariegos MD [Primary Care Provider] - 1 Week if not improving Disposition Disposition: Home, Self Care
--- NOTE | 2023-03-15 10:56 | RAD_ITS ---
INDICATION: pain R low back EXAMINATION/TECHNIQUE: X-RAY - XR Spine Lumbar 2 or 3 Views COMPARISON: CT of the abdomen and pelvis dated June 21, 2019 FINDINGS: VERTEBRAE: There are grossly stable postsurgical changes of the visualized thoracolumbar spine. There is a stable levoscoliosis of the thoracic spine. Preserved vertebral body height. No fracture. There is a grade 1 anterior spondylolisthesis of L4 on L5. No significant facet arthropathy. DISCS: There is multilevel degenerative disc disease. INCLUDED ABDOMEN: Included bowel gas pattern is non-obstructive. RAD/Lumbar Spine 2 or 3 Views IMPRESSION: Grade 1 anterior spondylolisthesis of L4 on L5. Multilevel degenerative disc disease. Postsurgical changes of the thoracolumbar spine. Electronically Signed: Courtney Kingston MD at 11:27 EDT ,
== END 2023-03-15 11:46 | disposition home or self-care (01) ==
PROVIDERS: Emergency Provider Emergency Medicine; PCP Family Medicine; Visit Provider Emergency Medicine
DX: M46.1 Sacroiliitis, not elsewhere classified (principal); I10 Essential (primary) hypertension; Z79.899 Other long term (current) drug therapy; F17.210 Nicotine dependence, cigarettes, uncomplicated
CPT/HCPCS: 72100; 99282

== ENCOUNTER 2023-03-16 19:44 | Emergency (ER) | payer MEDICAID, SELFPAY ==
[2023-03-16 19:45] VITALS: BP 142/81; PULSE 108; RESP 18; TEMP 36; O2SAT 98; BMI 23.6
--- NOTE | 2023-03-16 20:20 | EDS_ITS ---
HPI History of Present Illness Chief Complaint: Lower Extremity Injury Informant: patient Narrative Narrative: Patient's been having pain in her right low back/buttock for the last 4 days or so, she was seen here a little over 24 hours ago by myself. She has the same symptoms, they are actually better now she denies any new symptoms, she states she go to chiropractor if she cannot get in until next week, and she has been using the Percocet we prescribed her, and she states she cannot walk without it. It is really helping but she only has 1 left and is concerned that if she waits longer she will be in misery and not be able to get here to the ER. No pain radiating down her lower extremities. [facility] Medical History Hypertension Home Medications bupropion HCl 150 mg tablet,12 hr sustained-release 150 mg PO BID 02/19/19 [History Last Taken 08/31/20] etonogestrel 0.12 mg-ethinyl estradiol 0.015 mg/24 hr vaginal ring (NuvaRing) 1 ea VG X1 02/19/19 [History Last Taken Unknown] lisinopril 10 mg tablet (Prinivil) 10 mg PO DAILY 02/19/19 [History Last Taken 09/01/20] permethrin 5 % topical cream 60 gm TP X1 ##1 06/03/20 [Rx Last Taken 08/31/20] naproxen 500 mg tablet 500 mg PO BID #14 tabs 09/01/20 [Rx Last Taken Unknown] permethrin 5 % topical cream 1 applic topical Q14D 2 doses #60 grams 03/11/22 [Rx Last Taken Unknown] naproxen 500 mg tablet (Naprosyn) 500 mg PO BID PRN pain #20 tabs 06/28/22 [Rx Last Taken Unknown] oxycodone-acetaminophen 5 mg-325 mg tablet (Percocet) 1 tab PO Q8H PRN pain 2 days #6 tabs 03/16/23 [Rx Last Taken Unknown] Allergy/AdvReac Type Severity Reaction Status Date / Time acetaminophen [From [place]] AdvReac Nausea/Vom/ Verified 03/16/23 19:50 Diarrhea erythromycin base AdvReac Other Verified 03/16/23 19:50 hydrocodone [From [place]] AdvReac Nausea/Vom/ Verified 03/16/23 19:50 Diarrhea ibuprofen [From Motrin] AdvReac Nausea/Vom/ Verified 03/16/23 19:50 Diarrhea lorazepam [From Ativan] AdvReac Low blood Verified 03/16/23 19:50 pressure Surgical History History of back surgery Social History Smoking Status: Current every day smoker tobacco type: cigarettes ROS ROS ED Constitutional Constitutional ED: Denies chills or fever(s) Gastrointestinal Gastrointestinal: Denies abdominal pain, constipation, fecal incontinence, nausea or vomiting Genitourinary Genitourinary ED: Reports other Details: no urinary retention ; Denies abdominal discomfort or urinary incontinence Musculoskeletal Musculoskeletal: Reports as per HPI and back pain; Denies neck pain Integumentary Denies rash or wounds Neurologic Neurologic: Denies headache(s), paresthesias or weakness EXAM Physical Exam Const Vital Signs: 03/16/23 19:45 Temperature 96.8 F L Temperature Source Temporal Pulse Rate 108 H Respiratory Rate 18 Blood Pressure 142/81 H Blood Pressure Mean 101 Pulse Ox 98 Oxygen Delivery Method Room Air Positive well nourished and well developed General Appearance ED: well developed and NAD HEENT Negative for trauma or tenderness Eyes PERRL and EOMs intact bilaterally Neck full ROM and supple GI normal to inspection, nondistended, normoactive bowel sounds, soft to palpation and non-tender Back/Spine normal to inspection Lumbar Spine / Lower Back: ROM limited, paraspinal muscle tenderness and straight leg raise negative bilaterally; Negative for lumbar spinal tenderness Extremity normal to inspection, full ROM and no pedal edema Neuro oriented x3 and no sensory deficits noted Sensorium / Orientation: alert Motor Exam: strength 5/5 throughout and clonus absent Deep Tendon Reflexes: Rt Patellar (L4): 2+, Lt Patellar (L4): 2+, Rt Ankle (S1): 2+ and Lt Ankle (S1): 2+ Deep Tendon Reflexes Back: Rt Patellar (L4): 2+, Lt Patellar (L4): 2+, Rt Ankle (S1): 2+ and Lt Ankle (S1): 2+ Plantar Reflex: Downgoing: bilateral Psych mental status grossly normal and thought process normal Skin no rashes or lesions noted and no wounds MDM MDM MDM Narrative Medical decision making narrative: Mildly tender at the right SI joint. Negative straight leg raises, neurovas cular intact distally. We will give her another short prescription for Vicodin/Percocet but she understands that she would not be able to fill the prescription until the current one is out.. We discussed other techniques until she is seen in follow-up. Discharge Plan Triage Chief Complaint: Lower Extremity Injury ED Provider: Lionel Latham Dx/Rx/DC Orders Clinical Impression: Sacroiliitis Instructions: ED Sacroiliitis Prescriptions: Continued bupropion HCl 150 MG tablet sustained-release 12 hr 150 mg PO BID lisinopril [Prinivil] 10 MG tablet 10 mg PO DAILY etonogestrel-ethinyl estradiol [NuvaRing] 1 EACH ring 1 ea VG X1 permethrin 60 GM cream 60 gm TP X1 Qty: 1 0RF naproxen 500 MG tablet 500 mg PO BID Qty: 14 0RF permethrin 5 % cream 1 applic topical Q14D Qty: 60 0RF Rx Instructions: apply second treatment 14 days after first treatment if live insects remain naproxen [Naprosyn] 500 mg tablet 500 mg PO BID PRN (Reason: pain) Qty: 20 0RF oxycodone-acetaminophen [Percocet] 5-325 mg tablet 1 tab PO Q8H PRN (Reason: pain) 2 Days Qty: 6 0RF Primary Care Provider: Josh Mazariegos Referrals: Josh Mazariegos MD [Primary Care Provider] - As soon as possible (And/or chiropractor, physical therapy through your doctor) Disposition Disposition: Home, Self Care
== END 2023-03-16 20:29 | disposition home or self-care (01) ==
PROVIDERS: Emergency Provider Emergency Medicine; PCP Family Medicine; Visit Provider Emergency Medicine
DX: M46.1 Sacroiliitis, not elsewhere classified (principal); I10 Essential (primary) hypertension; F17.210 Nicotine dependence, cigarettes, uncomplicated
CPT/HCPCS: 99282

== ENCOUNTER 2023-05-18 18:47 | Emergency (ER) | payer MEDICAID, SELFPAY ==
[2023-05-18 18:49] VITALS: BP 149/84; PULSE 106; RESP 18; TEMP 35.7; O2SAT 98; BMI 24.4
--- NOTE | 2023-05-18 19:36 | US_ITS ---
STUDY: VENOUS DOPPLER ULTRASOUND - RIGHT LOWER EXTREMITY REASON FOR EXAM: Female, 52 years old. POSTERIOR RT KNEE PAIN TECHNIQUE: Ultrasound evaluation of the deep vein system to include ely-scale imaging and compression was performed. Ely-scale imaging and Doppler sonographic evaluation, including duplex spectral analysis and qualitative color flow sonography, was performed. COMPARISON: None. FINDINGS: Common Femoral Vein: Normal compression, spontaneity and augmentation. Normal color Doppler. Common Femoral Vein/Greater Saphenous Junction: Normal compression, spontaneity and augmentation. Normal color Doppler. Deep Femoral Vein: Normal compression, spontaneity and augmentation. Normal color Doppler. Femoral Proximal: Normal compression, spontaneity and augmentation. Normal color Doppler. Femoral Middle: Normal compression, spontaneity and augmentation. Normal color Doppler. Femoral Distal: Normal compression, spontaneity and augmentation. Normal color Doppler. Popliteal Vein: Normal compression, spontaneity and augmentation. Normal color Doppler. Posterior Tibial Vein: Normal compression, spontaneity and augmentation. Normal color Doppler. Peroneal Vein: Normal compression, spontaneity and augmentation. Normal color Doppler. Incidental finding of small Green''s cyst measuring 2 x 2.4 cm US/Venous Duplex Imag/Limited/Uni IMPRESSION: No evidence for deep venous thrombosis. Incidental finding of small Green''s cyst. Electronically Signed: Ernesto Kendall MD at 20:21 EDT ,
--- NOTE | 2023-05-18 19:58 | ED.VIS.LOWEX ---
HPI History of Present Illness Chief Complaint: Lower Extremity Injury Detail of Chief Complaint: Atraumatic right calf and popliteal pain with swelling right lower extremit Informant: patient Occured/Mechanism Comment: Patient was in a van. There is a long distance trip. Patient did bump the front of her leg but she is not complaining of anterior leg pain. She is complaining of proximal calf and popliteal pain. Onset/Context/Timing Onset: Days (Onset of pain and swelling 3 days ago) Context: Sudden Onset Timing: Continuous Quality of Pain: Dull and Aching Location: Proximal calf and popliteal fossa right lower extremity Maximum Severity: Moderate Worsened by: Palpation and walking Relieved by: Nothing Associated Symptoms Associated Symptoms: Negative for Parasthesia, Weakness or Loss of Funtion Narrative Narrative: Patient is a healthy 52-year-old woman on estrogen therapy who was in a lung van ride and presents with atraumatic calf and popliteal fossa pain right lower extremity for the past several days. Trip was approximate 1 week ago. She denies fever, chills night sweats. She denies shortness of breath or chest pain. She denies GI symptoms. She denies bruising easily. She does have a history of hypertension and depression. She has no other complaints. She denies paresthesia, anesthesia or motor weakness. She denies trouble ambulating. Tetanus Immunization: >10 years Prior similar symptoms: No Recent Illness/Hospitalization: [facility] Medical History Hypertension Home Medications bupropion HCl 150 mg tablet,12 hr sustained-release 150 mg PO BID 02/19/19 [History Last Taken 08/31/20] etonogestrel 0.12 mg-ethinyl estradiol 0.015 mg/24 hr vaginal ring (NuvaRing) 1 ea VG X1 02/19/19 [History Last Taken Unknown] lisinopril 10 mg tablet (Prinivil) 10 mg PO DAILY 02/19/19 [History Last Taken 09/01/20] permethrin 5 % topical cream 60 gm TP X1 ##1 06/03/20 [Rx Last Taken 08/31/20] naproxen 500 mg tablet 500 mg PO BID #14 tabs 09/01/20 [Rx Last Taken Unknown] permethrin 5 % topical cream 1 applic topical Q14D 2 doses #60 grams 03/11/22 [Rx Last Taken Unknown] naproxen 500 mg tablet (Naprosyn) 500 mg PO BID PRN pain #20 tabs 06/28/22 [Rx Last Taken Unknown] oxycodone-acetaminophen 5 mg-325 mg tablet (Percocet) 1 tab PO Q8H PRN pain 2 days #6 tabs 03/16/23 [Rx Last Taken Unknown] Allergy/AdvReac Type Severity Reaction Status Date / Time acetaminophen [From [place]] AdvReac Nausea/Vom/ Verified 05/18/23 18:48 Diarrhea erythromycin base AdvReac Other Verified 05/18/23 18:48 hydrocodone [From [place]] AdvReac Nausea/Vom/ Verified 05/18/23 18:48 Diarrhea ibuprofen [From Motrin] AdvReac Nausea/Vom/ Verified 05/18/23 18:48 Diarrhea lorazepam [From Ativan] AdvReac Low blood Verified 05/18/23 18:48 pressure Surgical History History of back surgery Social History (Updated 05/18/23 @ 20:[address] Kamran Lou MD) household members: none Smoking Status: Current every day smoker tobacco type: cigarettes substance use type: does not use ROS ROS ED Constitutional Constitutional ED: Denies chills, fever(s), subjective, sweats or weight loss Eyes Eyes: Denies blurry vision or change in vision ENT ENT ED: Denies ear pain, rhinorrhea or sore throat Cardiovascular Cardiovascular: Denies chest pain, palpitations or racing heartbeat Respiratory/Chest Respiratory/Chest: Denies cough, dyspnea or dyspnea on exertion Gastrointestinal Gastrointestinal: Denies nausea or vomiting Musculoskeletal Musculoskeletal: Denies arthralgias or myalgias Integumentary Reports Abrasions and other Details: Abrasion anterior right and left leg due to blunt trauma 1 week ago Neurologic Neurologic: Denies headache(s), paresthesias or weakness Endocrine Endocrinology: Denies polydipsia or polyphagia Hematologic/Lymphatic Hematologic/Lymphatic: Denies easy bleeding or easy bruising EXAM Physical Exam Const Vital Signs: 05/18/23 18:49 Temperature 96.2 F L Temperature Source Temporal Pulse Rate 106 H Respiratory Rate 18 Blood Pressure 149/84 H Blood Pressure Mean 105 Pulse Ox 98 Oxygen Delivery Method Room Air Positive well nourished and well developed General Appearance ED: well developed and NAD HEENT Reports moist mucous membranes normocephalic and atraumatic Eyes PERRL Eyes Narrative: Extract muscles intact. Sclera is anicteric. Conjunctive is pink. Neck full ROM and supple Chest Wall inspection of chest normal and palpation of chest normal Resp normal respiratory effort, no retractions and clear to auscultation bilaterally Cardio regular rate, regular rhythm, S1 normal heart sound, S2 normal heart sound and no murmurs GI non-tender, non-distended and no masses Auscultation: normoactive bowel sounds Palpation: soft Back/Spine no CVA tenderness Extremity full ROM; Negative for normal to inspection Extremity Narrative: The right leg is swollen compared to the left. There is pain in the distribution deep venous system. Pain specifically proximal gastrocnemius and popliteal fossa. There is no joint line tenderness in the knee. The patellas not voluble. There is no effusion. There is no laxity with varus valgus stress testing and this does not cause discomfort. Patient able to extend to 180 degrees flex to 90 degrees. Isaiah's test was negative. Modified Chanda's test was negative. DP and PT pulse are palpable. There is no popliteal or inguinal lymphadenopathy. General Extremety ED: Yes edema General Extremity: edema Neuro oriented x3, CN's II-XII intact bilaterally and moves all extremities Sensorium / Orientation: alert Psych mental status grossly normal Skin Skin Narrative: Region anterior right and left leg MDM MDM MDM Narrative Medical decision making narrative: With unilateral swelling Wells score of +2 for DVT placed patient in moderate pretest probability and necessity for venous duplex study. There is good represent dependent edema because of injury. There is no evidence of neurovascular compromise. There is no evidence of infection. Blood work is not indicated. Treatment and Re-Evaluation Narrative: Venous duplex study reveals a Green's cyst. There is no evidence of DVT. Discharge Plan Triage Chief Complaint: Lower Extremity Injury ED Provider: Kamran Lou Dx/Rx/DC Orders Clinical Impression: Green's cyst of knee Instructions: ED Green's Cyst Prescriptions: No Action bupropion HCl 150 MG tablet sustained-release 12 hr 150 mg PO BID lisinopril [Prinivil] 10 MG tablet 10 mg PO DAILY etonogestrel-ethinyl estradiol [NuvaRing] 1 EACH ring 1 ea VG X1 permethrin 60 GM cream 60 gm TP X1 Qty: 1 0RF naproxen 500 MG tablet 500 mg PO BID Qty: 14 0RF permethrin 5 % cream 1 applic topical Q14D Qty: 60 0RF Rx Instructions: apply second treatment 14 days after first treatment if live insects remain naproxen [Naprosyn] 500 mg tablet 500 mg PO BID PRN (Reason: pain) Qty: 20 0RF oxycodone-acetaminophen [Percocet] 5-325 mg tablet 1 tab PO Q8H PRN (Reason: pain) 2 Days Qty: 6 0RF Primary Care Provider: Josh Mazariegos Referrals: Josh Mazariegos MD [Primary Care Provider] - Christopher Acosta MD [Med Staff - Active Staff] - 5-7 Days Activity Restrictions/Additional Instructions: 1. You may take either 2 Aleve tablets every 12 hours or 4 Advil tablets every 8 hours for next 3 to 5 days for pain. If you are still having pain recommend following up with orthopedic surgery regarding potential aspiration of the fluid. Disposition Disposition: Home, Self Care
== END 2023-05-18 20:28 | disposition home or self-care (01) ==
PROVIDERS: Emergency Provider Emergency Medicine; PCP Family Medicine; Visit Provider Emergency Medicine
DX: M71.20 Synovial cyst of popliteal space [Baker], unspecified knee (principal); F17.210 Nicotine dependence, cigarettes, uncomplicated; I10 Essential (primary) hypertension; F32.A Depression, unspecified; Z79.899 Other long term (current) drug therapy; M79.604 Pain in right leg
CPT/HCPCS: 93971; 99282

== ENCOUNTER 2023-05-21 08:30 | Emergency (ER) | payer MEDICAID, SELFPAY ==
[2023-05-21 08:30] VITALS: BP 140/80; PULSE 101; RESP 16; TEMP 35.8; O2SAT 99
[2023-05-21 08:40] VITALS: BMI 24.8
[2023-05-21 08:41] VITALS: BMI 24.8
--- NOTE | 2023-05-21 09:04 | EDS_ITS ---
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 Je gallego was actually seen in our ER 3 days ago for similar symptoms. At that time she had a venous duplex which was negative for DVT but did show Bakers cyst. Patient states since then she continues to have significant pain in her knee and calf area. She states that there is a tight knot sensation in her calf that goes to her ankle. She also notes that her knee feels unstable. She states she is had prior meniscal surgery on her left knee and the instability in her knee feels similar to that. Patient does comment that 2 to 3 weeks ago she had an injury to her leg where the transport but she was on stop suddenly and her barrett hit a metal piece in front of her where she was sitting and she landed on her knee. 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 She comments that she should have asked for a cane on her last visit. She took 2 Tylenol and 1 Aleve last night with no relief of the symptoms. She states he is having a hard time sleeping because of this discomfort. Patient does comment that she has not had time to call orthopedics yet for follow-up. Patient denies any difficulty breathing or shortness of breath however she does note that sometimes when the pain is bad she gets flushed and it takes her breath away. No new injury reported. No significant change in the characteristics or placement of her pain since her last ER visit. Patient does note with elevation and ice for swelling is slightly better but continues to be present. Patient has a history of depression and hypertension. [facility] Medical History Hypertension Home Medications bupropion HCl 150 mg tablet,12 hr sustained-release 150 mg PO BID 02/19/19 [History Last Taken 08/31/20] etonogestrel 0.12 mg-ethinyl estradiol 0.015 mg/24 hr vaginal ring (NuvaRing) 1 ea VG X1 02/19/19 [History Last Taken Unknown] lisinopril 10 mg tablet (Prinivil) 10 mg PO DAILY 04/27/19 [History Last Taken 09/01/20] permethrin 5 % topical cream 60 gm TP X1 ##1 06/03/20 [Rx Last Taken 08/31/20] naproxen 500 mg tablet 500 mg PO BID #14 tabs 09/01/20 [Rx Last Taken Unknown] permethrin 5 % topical cream 1 applic topical Q14D 2 doses #60 grams 03/11/22 [Rx Last Taken Unknown] naproxen 500 mg tablet (Naprosyn) 500 mg PO BID PRN pain #20 tabs 06/28/22 [Rx Last Taken Unknown] oxycodone-acetaminophen 5 mg-325 mg tablet (Percocet) 1 tab PO Q8H PRN pain 2 days #6 tabs 03/16/23 [Rx Last Taken Unknown] prednisone 20 mg tablet 40 mg (2 x 20 mg) PO DAILY 5 days #10 tabs 05/21/23 [Rx Last Taken Unknown] Allergy/AdvReac Type Severity Reaction Status Date / Time erythromycin base AdvReac Other Verified 05/21/23 08:33 hydrocodone [From [place]] AdvReac Nausea/Vom/ Verified 05/21/23 08:33 Diarrhea ibuprofen [From Motrin] AdvReac Nausea/Vom/ Verified 05/21/23 08:33 Diarrhea lorazepam [From Ativan] AdvReac Low blood Verified 05/21/23 08:33 pressure Surgical History History of back surgery Social History (Updated 05/18/23 @ 20:[address] Kamran Lou MD) household members: none Smoking Status: Former smoker substance use type: does not use ROS ROS ED Constitutional Constitutional ED: Denies chills or fever(s) Respiratory/Chest Respiratory/Chest: Denies cough or dyspnea Gastrointestinal Gastrointestinal: Denies nausea Musculoskeletal Musculoskeletal: Reports other Details: right knee/calf/barrett pain Integumentary Reports Abrasions; Denies rash Neurologic Neurologic: Denies paresthesias or weakness Psychiatric Psychiatric: Denies anxiety Hematologic/Lymphatic Hematologic/Lymphatic: Denies easy bleeding or easy bruising EXAM Physical Exam Const Vital Signs: 05/21/23 08:30 Temperature 96.5 F L Temperature Source Temporal Pulse Rate 101 H Respiratory Rate 16 Blood Pressure 140/80 H Blood Pressure Mean 100 Pulse Ox 99 Oxygen Delivery Method Room Air Positive well nourished and well developed General Appearance ED: well developed and NAD HEENT Reports moist mucous membranes normocephalic Neck supple Resp normal respiratory effort Cardio regular rate and regular rhythm Cardio Narrative: 2+ PT pulse- right Extremity Extremity Narrative: Mild asymmetric edema, nonpitting of the right calf compared to the left. No significant joint effusion on the right. Mild pain with range of motion of the knee but no short arc pain. No significant laxity or pain with valgus and varus stress as well as anterior posterior drawer. No tenderness of the fibular head on palpation. Extensor mechanism intact. No palpable cords appreciated. Mild tenderness to palpation of the posterior fossa of the knee. Neuro oriented x3, moves all extremities and no sensory deficits noted Sensorium / Orientation: alert Motor Exam: Negative for general weakness Psych mental status grossly normal Skin Skin Narrative: Healing abrasion to the anterior barrett, no surrounding erythematous or infectious changes. No active drainage or bleeding appreciated. MDM MDM MDM Narrative Medical decision making narrative: Patient evaluated for continued right knee and lower leg pain. She had a venous duplex which was negative for acute DVT 3 days ago. It did show a Green's cyst. Patient's had continued pain. She also feels that there are some instability of the knee. Does report this remote trauma's will obtain an x-ray to look for an occult fracture. X-ray reviewed by myself as well as radiology does not show any acute fracture but does show small joint effusion. Patient counseled that there could be mild meniscal injury given her sensation of instability. There is no significant laxity on exam and I do not think this requires an emergent orthopedic consult. Patient be placed on a short course of steroids as she is not tolerate ibuprofen due to GI upset as well as given an William wrap. Patient is also given prescription for a cane and she thinks this will assist her with her activities at work. Is counseled continued rice therapy. Is encouraged heavily to call orthopedics for outpatient follow-up. Given return precautions. Discharged home in stable condition. Radiography Diagnostic Testing: Clinical Impression(s) from Imaging Studies Knee X-Ray 05/21/23 09:10 IMPRESSION: Small joint effusion. Electronically Signed: Rafita North MD at 9:31 EDT , Discharge Plan Triage Chief Complaint: Lower Extremity Injury ED Provider: Josey Whelan Dx/Rx/DC Orders Clinical Impression: Effusion of right knee, Acute pain of right knee Instructions: ED Meniscal Injury Knee Poss, ED Knee Pain of Uncertain Cause Prescriptions: New prednisone 20 mg tablet 40 mg PO DAILY 5 Days Qty: 10 0RF No Action bupropion HCl 150 MG tablet sustained-release 12 hr 150 mg PO BID lisinopril [Prinivil] 10 MG tablet 10 mg PO DAILY etonogestrel-ethinyl estradiol [NuvaRing] 1 EACH ring 1 ea VG X1 permethrin 60 GM cream 60 gm TP X1 Qty: 1 0RF naproxen 500 MG tablet 500 mg PO BID Qty: 14 0RF permethrin 5 % cream 1 applic topical Q14D Qty: 60 0RF Rx Instructions: apply second treatment 14 days after first treatment if live insects remain naproxen [Naprosyn] 500 mg tablet 500 mg PO BID PRN (Reason: pain) Qty: 20 0RF oxycodone-acetaminophen [Percocet] 5-325 mg tablet 1 tab PO Q8H PRN (Reason: pain) 2 Days Qty: 6 0RF Other Ambulatory Orders: Cane (Routine) Location: None Selected Ordered By: Dr. Josey Whelan Quad Cane (Routine) Location: None Selected Ordered By: Dr. Josey Whelan Primary Care Provider: Josh Mazariegos Referrals: Josh Mazariegos MD [Primary Care Provider] - Christopher Acosta MD [Med Staff - Active Staff] - As Needed Activity Restrictions/Additional Instructions: He been given a course of steroids to help help. Please follow up with o rthopedics.
--- NOTE | 2023-05-21 09:10 | RAD_ITS ---
STUDY: X-RAY - RIGHT KNEE REASON FOR EXAM: Female, 52 years old. Injury/Pain TECHNIQUE: 4 view(s) of the knee. COMPARISON: None. FINDINGS: Normal visualized distal femur. Normal visualized proximal tibia and fibula. Normal proximal tibiofibular articulation. Normal medial femorotibial compartment. Normal lateral femorotibial compartment. Normal patellofemoral articulation. Small joint effusion. RAD/Knee 4 or More Views IMPRESSION: Small joint effusion. Electronically Signed: Rafita North MD at 9:31 EDT ,
--- NOTE | 2023-05-21 11:25 | ED.RN ---
PT. GIVEN HER DISCHARGE PAPERWORK/INSTRUCTIONS. PT. REQUESTED PRESCRIPTION FOR SOMETHING FOR PAIN. THIS RN TOLD PT. SHE GOT A RX FOR A STEROID AND THAT SHE COULD TAKE TYLENOL/MOTRIN/ALEVE FOR PAIN. PT. STATES THAT DOES NOT WORK FOR ME I WANT SOMETHING STRONGER, I DON'T UNDERSTAND WHY THE DR WONT GIVE ME ANYTHING MORE FOR PAIN WITH WHAT I AM EXPERIENCING. THIS RN REITERATED THAT SHE IS NOT BEING PRESCRIBED ANYTHING MORE AT THIS TIME. PT. STATES i WANT TO TALK TO THE DR I AM NOT LEAVING UNTIL I TALK TO HER. THIS RN NOTFIED DR. KAERNS AND URMILA STATED SHE WOULD BE INTO TALK TO HER.
--- NOTE | 2023-05-21 12:10 | ED.RN ---
PT RINGS OUT FOR RN FOR THE 5 TH OR 6 TH TIME. THIS RN INTO ROOM. PT STATES IF THAT PHYSICIAN WILL NOT COME SEE ME I WANT TO TALK TO SOMEONE IN CHARGE. THIS RN INFORMS PT THAT PHYSICIAN IS WITH A CRITICALLY ILL PT. PT STATES I DON'T CARE I AM IN PAIN AND WANT PAIN MEDICATION. THIS RN INFORMS HER THAT SHE IS MORE THEN WELCOME TO TALK WITH THIS RN . BUT THE PHYSICIAN IS NOT AVAILIABLE AT THIS TIME. PT STATES WILL WAIT
--- NOTE | 2023-05-21 12:11 | ED.RN ---
PT. HAS CALLED OUT 3 TIMES IN 15 MINUTES REQUESTING TO SPEAK WITH DR. KEARNS. PT. HAS BEEN NOTIFED THAT DR KEARNS IS IN AN EMERGENCY. CHARGE NURSE CHAU SOLANO
--- NOTE | 2023-05-21 12:27 | ED.RN ---
Pt. ambulatory in room-requesting wheelchair to be wheeled out to ride.
== END 2023-05-21 12:30 | disposition home or self-care (01) ==
PROVIDERS: Emergency Provider Emergency Medicine; PCP Family Medicine; Visit Provider Emergency Medicine
DX: M25.561 Pain in right knee (principal); Z87.891 Personal history of nicotine dependence; M25.461 Effusion, right knee; I10 Essential (primary) hypertension; F32.A Depression, unspecified; Z79.899 Other long term (current) drug therapy; Z79.3 Long term (current) use of hormonal contraceptives; W22.09XA Striking against other stationary object, initial encounter; Y92.818 Other transport vehicle as the place of occurrence of the external cause
CPT/HCPCS: 73564; 99283

== ENCOUNTER 2023-07-08 17:22 | Emergency (ER) | payer MEDICAID, SELFPAY ==
[2023-07-08 17:23] VITALS: BP 169/98; PULSE 122; RESP 18; TEMP 36.2; O2SAT 97; BMI 25.0
--- NOTE | 2023-07-08 18:03 | EX.ED.DYSGE1 ---
HPI History of Present Illness Chief Complaint: Bite Detail of Chief Complaint: Wound to face Informant: patient Narrative Narrative: Patient presents the emergency department with a wound to her chin that she had for about a week. Patient states that she has been picking at it and its become uncomfortable. She was not sure if she had an ingrown hair there potentially. Patient states that she has had some different rashes and was told by her PCP to follow-up with dermatology. She was with a boyfriend who had a dog that had fleas and ticks and she is no longer around that animal. Patient was seen at urgent care 2 days ago and started on doxycycline. Patient wanted to have the area evaluated again. She thought perhaps the wound was getting larger. She continues to pick at it. [facility] Medical History Asthma Hypertension Home Medications bupropion HCl 150 mg tablet,12 hr sustained-release 150 mg PO BID 02/19/19 [History Last Taken 08/31/20] etonogestrel 0.12 mg-ethinyl estradiol 0.015 mg/24 hr vaginal ring (NuvaRing) 1 ea VG X1 02/19/19 [History Last Taken Unknown] lisinopril 10 mg tablet (Prinivil) 10 mg PO DAILY 02/19/19 [History Last Taken 09/01/20] permethrin 5 % topical cream 60 gm TP X1 ##1 06/03/20 [Rx Last Taken 08/31/20] naproxen 500 mg tablet 500 mg PO BID #14 tabs 09/01/20 [Rx Last Taken Unknown] permethrin 5 % topical cream 1 applic topical Q14D 2 doses #60 grams 03/11/22 [Rx Last Taken Unknown] naproxen 500 mg tablet (Naprosyn) 500 mg PO BID PRN pain #20 tabs 06/28/22 [Rx Last Taken Unknown] oxycodone 5 mg tablet 5 mg PO Q8H PRN pain 2 days #6 tabs 05/21/23 [Rx Last Taken Unknown] prednisone 20 mg tablet 40 mg (2 x 20 mg) PO DAILY 5 days #10 tabs 05/21/23 [Rx Last Taken Unknown] oxycodone-acetaminophen 5 mg-325 mg tablet (Percocet) 1 tab PO Q6H pain 3 days #12 tabs 07/13/23 [Rx Last Taken Unknown] Allergy/AdvReac Type Severity Reaction Status Date / Time erythromycin base AdvReac Other Verified 07/18/23 20:53 hydrocodone [From [place]] AdvReac Nausea/Vom/ Verified 07/18/23 20:53 Diarrhea ibuprofen [From Motrin] AdvReac Nausea/Vom/ Verified 07/18/23 20:53 Diarrhea lorazepam [From Ativan] AdvReac Low blood Verified 07/18/23 20:53 pressure Surgical History History of back surgery Social History household members: none Smoking Status: Former smoker substance use type: does not use ROS ROS ED Review of Systems ROS Unobtainable: other Constitutional Constitutional ED: Reports lethargy; Denies chills, fever(s), sweats or weight loss Eyes Eyes: Denies blurry vision, change in vision or diplopia ENT ENT ED: Denies rhinorrhea or sore throat Cardiovascular Cardiovascular: Denies chest pain, orthopnea or racing heartbeat Respiratory/Chest Respiratory/Chest: Denies cough, dyspnea, dyspnea on exertion, orthopnea or sputum Gastrointestinal Gastrointestinal: Denies abdominal pain, diarrhea, nausea or vomiting Genitourinary Genitourinary ED: Denies dysuria, hematuria or urinary frequency Musculoskeletal Musculoskeletal: Denies arthralgias, back pain, myalgias or neck pain Integumentary Reports abscess and other Details: Wound to chin ; Denies Abrasions or rash Neurologic Neurologic: Denies headache(s) or weakness Psychiatric Psychiatric: Denies anxiety, depression or suicidal thoughts Endocrine Endocrinology: Denies polydipsia, polyphagia or polyuria Hematologic/Lymphatic Hematologic/Lymphatic: Denies easy bleeding, easy bruising or lymphadenopathy Allergic/Immunologic Allergic/Immunologic ED: Denies mouth swelling, tongue swelling or urticaria EXAM Physical Exam Const Vital Signs: 07/08/23 17:23 07/08/23 17:48 Temperature 97.2 F L Temperature Source Temporal Pulse Rate 122 H Respiratory Rate 18 Respiratory Pattern Normal Blood Pressure 169/98 H Blood Pressure Mean 121 Pulse Ox 97 Oxygen Delivery Method Room Air Positive well nourished and well developed General Appearance ED: well developed and NAD HEENT Reports TM's clear and moist mucous membranes HEENT Narrative: Chin-right side of the chin has a excoriated wound measuring approximately 2.5 cm x 2 cm. No significant cellulitic changes noted. There is no abscess. No foreign bodies noted within the wound. normocephalic and atraumatic; Negative for trauma or tenderness Tympanic Membrane ED: Yes TM's clear Eyes PERRL and EOMs intact bilaterally General Eye ED: Negative for pale conjunctiva or scleral icterus Neck no lymphadenopathy, supple and no JVD General: Negative for tenderness Chest Wall inspection of chest normal and palpation of chest normal Chest: Negative for tenderness Resp normal respiratory effort and clear to auscultation bilaterally Effort and Inspection: Negative for respiratory distress or pain with movement Auscultation: Negative for rhonchi, wheezes or diminished lung sounds Cardio regular rate, regular rhythm, S1 normal heart sound, S2 normal heart sound and no murmurs Peripheral Pulses: pulses 2+ throughout GI normal to inspection, nondistended, normoactive bowel sounds, soft to palpation, non-tender, non-distended and no masses Back/Spine no CVA tenderness and no thoracic nor lumbar tenderness Extremity normal to inspection General Extremety ED: Negative for edema General Extremity: Negative for edema Neuro oriented x3, CN's II-XII intact bilaterally, no sensory deficits noted and gait normal Sensorium / Orientation: awake, alert, oriented to person, oriented to place and oriented to time Motor Exam: strength 5/5 throughout and strength abnormal Psych mental status grossly normal Skin no rashes or lesions noted and no wounds MDM MDM MDM Narrative Medical decision making narrative: Patient presents with a wound on her chin from picking. No evidence of abscess at this time. I advised her to continue with the doxycycline. We will give her referral to dermatology. Discharge Plan Triage Chief Complaint: Bite ED Provider: Hernando Patterson Dx/Rx/DC Orders Clinical Impression: Wound cellulitis Instructions: ED Cellulitis Prescriptions: No Action bupropion HCl 150 MG tablet sustained-release 12 hr 150 mg PO BID lisinopril [Prinivil] 10 MG tablet 10 mg PO DAILY etonogestrel-ethinyl estradiol [NuvaRing] 1 EACH ring 1 ea VG X1 permethrin 60 GM cream 60 gm TP X1 Qty: 1 0RF naproxen 500 MG tablet 500 mg PO BID Qty: 14 0RF permethrin 5 % cream 1 applic topical Q14D Qty: 60 0RF Rx Instructions: apply second treatment 14 days after first treatment if live insects remain naproxen [Naprosyn] 500 mg tablet 500 mg PO BID PRN (Reason: pain) Qty: 20 0RF prednisone 20 mg tablet 40 mg PO DAILY 5 Days Qty: 10 0RF oxycodone 5 mg tablet 5 mg PO Q8H PRN (Reason: pain) 2 Days Qty: 6 0RF oxycodone-acetaminophen [Percocet] 5-325 mg tablet 1 tab PO Q6H 3 Days Qty: 12 0RF Primary Care Provider: Josh Mazariegos Referrals: Josh Mazariegos MD [Primary Care Provider] - David Hamilton MD [Med Staff - [place]] - 3-5 Days Disposition Disposition: Home, Self Care Discharge Date/Time: 07/08/23 18:19
== END 2023-07-08 18:19 | disposition home or self-care (01) ==
LOC: ED 18:17
PROVIDERS: Emergency Provider Emergency Medicine; PCP Family Medicine; Visit Provider Emergency Medicine
DX: L03.211 Cellulitis of face (principal); I10 Essential (primary) hypertension; Z87.891 Personal history of nicotine dependence; Z79.3 Long term (current) use of hormonal contraceptives; Z79.899 Other long term (current) drug therapy
CPT/HCPCS: 99284

== ENCOUNTER 2023-07-11 21:27 | Emergency (ER) | payer MEDICAID, SELFPAY ==
[2023-07-11 21:29] VITALS: BP 152/96; PULSE 102; RESP 16; TEMP 36.4; BMI 24.0
[2023-07-11 21:32] VITALS: BP 152/96; PULSE 102; RESP 16; TEMP 36.4
--- NOTE | 2023-07-11 22:26 | RAD_ITS ---
EXAM: XR RIGHT FOOT COMPLETE, 3 OR MORE VIEWS CLINICAL INDICATION: pain TECHNIQUE: Frontal, lateral and oblique views of the right foot. COMPARISON: No relevant prior studies available. FINDINGS: BONES/JOINTS: No significant abnormality. No acute fracture. No subluxation. Normal alignment. Preservation of the joint space. No sclerotic or destructive changes observed. SOFT TISSUES: Soft tissue swelling in the foot and ankle. No radiopaque foreign body. RAD/Foot min 3 Views IMPRESSION: Soft tissue swelling in the foot and ankle. No acute fracture. Electronically Signed: Trenton Vargas DO at 22:44 EDT ,
--- NOTE | 2023-07-11 22:30 | RAD_ITS ---
EXAM: XR RIGHT ANKLE COMPLETE, 3 OR MORE VIEWS CLINICAL INDICATION: pain TECHNIQUE: Frontal, lateral and oblique views of the right ankle. COMPARISON: Foot on the same date. FINDINGS: BONES/JOINTS: No significant abnormality. No acute fracture. No subluxation. Normal alignment. Preservation of the joint space. No sclerotic or destructive changes observed. SOFT TISSUES: Diffuse soft tissue swelling. No radiopaque foreign body. RAD/Ankle min 3 Views IMPRESSION: Diffuse soft tissue swelling. No acute fracture. Electronically Signed: Trenton Vargas DO at 22:43 EDT ,
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
[2023-07-11 23:52] VITALS: RESP 18
== END 2023-07-11 23:53 | disposition home or self-care (01) ==
PROVIDERS: Emergency Provider Emergency Medicine; PCP Family Medicine; Visit Provider Emergency Medicine
DX: S80.11XA Contusion of right lower leg, initial encounter (principal); I10 Essential (primary) hypertension; Z87.891 Personal history of nicotine dependence; R58 Hemorrhage, not elsewhere classified; Z79.899 Other long term (current) drug therapy; Z79.3 Long term (current) use of hormonal contraceptives
CPT/HCPCS: 73610; 73630; 99283

== ENCOUNTER → 2023-07-15 | Outpatient (CLI) | payer MEDICAID, SELFPAY ==
--- NOTE | 2023-07-15 11:14 | VDLE_ITS ---
Reason For Study: RLE Pain RIGHT LEFT GSV is normal. CFV is compressible, spontaneous, phasic, CFV is compressible, spontaneous, phasic, competent, and demonstrates normal competent and demonstrates normal augmentation. augmentation. FV is compressible, spontaneous, phasic, competent and demonstrates normal augmentation. POP V is compressible, spontaneous, phasic, competent and demonstrates normal augmentation. T/P Trunk is compressible. PTV is compressible. RT PerV is compressible. Non Vascularized heterogenous area measuring approximately 2.76cm x 0.95cm, consistent with possible hematoma noted at anterior rt ankle. Procedure This is a venous duplex using B-mode, color flow and spectral Doppler. Exam performed in department. The exam was diagnostic. A preliminary report was called and/or faxed to [facility]. VL/Venous Duplex US, Unilateral Interpretation Summary Deep veins of the right lower extremity are patent and compressible segmentally . There is no evidence of right lower extremity deep vein thrombosis. Valvular competence siria ears intact within the proximal deep venous system on the right . The right great saphenous vein a ppears patent and compressible segmentally. A non-vascular, heterogeneous structure is noted near the right anterior ankle, measuring 2.76 cm x 0.95 cm. This may represent a hematoma. Clinical cor relation is advised. The left common femoral vein is patent and compressible . Ordering Physician: Brenna Wilson Referring Physician: MD Yair Josh Performed By: Rodolfo Lim RVRosalio
== END | disposition home or self-care (01) ==
LOC: CVS 11:13
PROVIDERS: PCP Family Medicine; Referring Provider Physician Assistant; Visit Provider Physician Assistant
DX: M79.661 Pain in right lower leg (principal)
CPT/HCPCS: 93971

== ENCOUNTER 2023-07-18 20:41 | Emergency (ER) | payer MEDICAID, SELFPAY ==
[2023-07-18 20:41] VITALS: BP 166/85; PULSE 100; RESP 16; TEMP 36.2; O2SAT 98; BMI 24.4
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
--- NOTE | 2023-07-18 21:07 | RAD_ITS ---
INDICATION: trauma EXAMINATION/TECHNIQUE: X-RAY - RIGHT XR Tibia/Fibula 2 Views 2 VIEWS COMPARISON: No relevant prior comparison study available FINDINGS: SOFT TISSUES: There is soft tissue swelling in the anterior aspect of the right lower leg near the ankle suggesting hematoma. No radiopaque foreign body. BONES/JOINTS: No acute fracture or subluxation.. Normal alignment. Preservation of the joint space.. No sclerotic or destructive changes observed. RAD/Tibia & Fibula 2 Views IMPRESSION: There is soft tissue swelling in the anterior aspect of the right lower leg near the ankle suggesting hematoma. Electronically Signed: Timothy Callejas MD at 22:16 EDT ,
[2023-07-18 21:08] LABS: Absolute Lymphocyte Count 2.16 X10^3/uL (0.83-4.51); Absolute Neutrophil Count 4.7 X10^3/uL (2.0-7.7); Basophil# 0.03 X10^3/uL; Basophil% 0.4 % (0-1); Eosinophil# 0.35 X10^3/uL; Eosinophils% 4.5 % (0-5); Hematocrit 39.1 % (37-47); Hemoglobin 12.7 g/dL (12.0-15.0); Lymphocyte # 2.16 X10^3/ul (0.83-4.51); Lymphocyte % 27.9 % (19-41); Mean Corp Hgb Conc 32.5 g/dL (32-36); Mean Corpuscular Hgb 30.8 pg (27.0-32.0); Mean Corpuscular Volume 94.7 fL (81-99); Mean Platelet Vol. 9.4 fl (6.2-12.0); Monocyte# 0.52 X10^3/uL; Monocyte% 6.7 % (0-10); NRBC Flagged by Analyzer 0 % (0-5); Neutrophil # 4.66 X10^3/uL (2.7-7.7); Neutrophil % 60.4 % (47-70); Platelet Count 375 K/mm3 (150-450); RBC Distribution Width CV 13.2 % (11.6-14.6); RBC Distribution Width SD 45.6 fl (35.1-43.9); Red Blood Count 4.13 M/mm3 (4.2-5.4); White Blood Count 7.7 K/mm3 (4.4-11.0)
[2023-07-18 21:28] LABS: AST(SGOT) 18 U/L (15-37); Alanine Aminotransfer ALT/SGPT 25 U/L (13-56); Alkaline Phosphatase 71 U/L (45-117); Anion Gap 6 (5-15); BUN 19 mg/dL (7-18); BUN/Creat Ratio 21.7 RATIO (10-20); Bilirubin, Direct 0.13 mg/dL (0.00-0.30); Calcium,Total 9.5 mg/dL (8.5-10.1); Chloride 105 mmol/L (98-107); Creatinine, Serum 0.88 mg/dL (0.55-1.02); EST Glomerular Filtration Rate 72 mL/min (>60); Est Glom Filt Rate - Afr Amer 87 mL/min (>60); Estimated Creatinine Clearance 57.07 ml/min; Globulin 3.4 g/dL (2.2-4.2); Glucose 122 mg/dL (74-106); Potassium 3.5 mmol/L (3.5-5.1); Protein, Total 7.4 g/dL (6.4-8.2); Sodium Level 140 mmol/L (136-145)
[2023-07-18 22:01] VITALS: BP 144/78; PULSE 76; RESP 16; O2SAT 98
== END 2023-07-18 22:12 | disposition home or self-care (01) ==
PROVIDERS: Emergency Provider Emergency Medicine; PCP Family Medicine; Visit Provider Emergency Medicine
DX: S80.11XA Contusion of right lower leg, initial encounter (principal); Z87.891 Personal history of nicotine dependence; I10 Essential (primary) hypertension; R58 Hemorrhage, not elsewhere classified; R11.0 Nausea
CPT/HCPCS: 73590; 80048; 80076; 85025; 99285; A4216

== ENCOUNTER 2023-07-24 18:17 | Emergency (ER) | payer MEDICAID, SELFPAY ==
[2023-07-24 18:18] VITALS: BP 151/84; PULSE 102; RESP 18; TEMP 36.2; O2SAT 98; BMI 23.8
--- NOTE | 2023-07-24 18:34 | EX.ED.DYSGE1 ---
HPI History of Present Illness Chief Complaint: Lower Extremity Injury Detail of Chief Complaint: Right lower extremity swelling Informant: patient Onset/Context/Timing Onset: Weeks Narrative Narrative: Patient returns secondary to continued right lower extremity swelling. She has been seen in the ER twice previously with bruising, pain, and swelling to the distal aspect of the right lower extremity. She had x-rays that were unremarkable and she does not remember any trauma. Our last visit she had blood work done to ensure not have a problem with platelet level. That was normal. Patient states she also followed up with [facility] who got an ultrasound of her right lower extremity and it revealed no evidence of DVT. Patient states overall the swelling is improved, but she continues to have a focal area of swelling over the anterior right ankle. She is not sure if there may be a fluid collection that needs to be drained. [facility] Medical History Asthma Hypertension Home Medications bupropion HCl 150 mg tablet,12 hr sustained-release 150 mg PO BID 02/19/19 [History Last Taken 08/31/20] etonogestrel 0.12 mg-ethinyl estradiol 0.015 mg/24 hr vaginal ring (NuvaRing) 1 ea VG X1 02/19/19 [History Last Taken Unknown] lisinopril 10 mg tablet (Prinivil) 10 mg PO DAILY 02/19/19 [History Last Taken 09/01/20] permethrin 5 % topical cream 60 gm TP X1 ##1 06/03/20 [Rx Last Taken 08/31/20] naproxen 500 mg tablet 500 mg PO BID #14 tabs 09/01/20 [Rx Last Taken Unknown] permethrin 5 % topical cream 1 applic topical Q14D 2 doses #60 grams 03/11/22 [Rx Last Taken Unknown] naproxen 500 mg tablet (Naprosyn) 500 mg PO BID PRN pain #20 tabs 06/28/22 [Rx Last Taken Unknown] oxycodone 5 mg tablet 5 mg PO Q8H PRN pain 2 days #6 tabs 05/21/23 [Rx Last Taken Unknown] prednisone 20 mg tablet 40 mg (2 x 20 mg) PO DAILY 5 days #10 tabs 05/21/23 [Rx Last Taken Unknown] oxycodone-acetaminophen 5 mg-325 mg tablet (Percocet) 1 tab PO Q6H pain 3 days #12 tabs 07/13/23 [Rx Last Taken Unknown] Allergy/AdvReac Type Severity Reaction Status Date / Time erythromycin base AdvReac Other Verified 07/18/23 20:53 hydrocodone [From [place]] AdvReac Nausea/Vom/ Verified 07/18/23 20:53 Diarrhea ibuprofen [From Motrin] AdvReac Nausea/Vom/ Verified 07/18/23 20:53 Diarrhea lorazepam [From Ativan] AdvReac Low blood Verified 07/18/23 20:53 pressure Surgical History History of back surgery Social History household members: none Smoking Status: Former smoker substance use type: does not use ROS ROS ED Constitutional Constitutional ED: Denies chills or fever(s) Eyes Eyes: Denies change in vision ENT ENT ED: Denies rhinorrhea or sore throat Cardiovascular Cardiovascular: Denies chest pain Respiratory/Chest Respiratory/Chest: Denies cough or dyspnea Gastrointestinal Gastrointestinal: Denies abdominal pain, nausea or vomiting Genitourinary Genitourinary ED: Denies dysuria Musculoskeletal Musculoskeletal: Reports extremity pain; Denies back pain Integumentary Denies Abrasions or rash Neurologic Neurologic: Denies headache(s) or weakness Allergic/Immunologic Allergic/Immunologic ED: Denies lip swelling or urticaria EXAM Physical Exam Const Vital Signs: 07/24/23 18:18 Temperature 97.1 F L Temperature Source Temporal Pulse Rate 102 H Respiratory Rate 18 Blood Pressure 151/84 H Blood Pressure Mean 106 Pulse Ox 98 Oxygen Delivery Method Room Air Positive well nourished and well developed General Appearance ED: well developed HEENT Reports normocephalic and head/scalp atraumatic Eyes PERRL and EOMs intact bilaterally Neck supple Chest Wall inspection of chest normal Resp normal respiratory effort Cardio regular rate and regular rhythm Extremity Extremity Narrative: There is an area of focal swelling measuring approximate 7 x 10 cm over the anterior lateral right ankle. No overlying erythema or sign of infection. She does have old appearing ecchymosis over the posterior distal calf. She is strong distal pulses with no edema noted over her foot. There are some old appearing ecchymosis along the great toe Neuro oriented x3 and no sensory deficits noted Sensorium / Orientation: alert Motor Exam: strength 5/5 throughout Psych mental status grossly normal Skin no rashes or lesions noted MDM MDM MDM Narrative Medical decision making narrative: Performed a bedside ultrasound. There is a focal fluid collection in the area of interest. I advised the patient that I would try to drain this with a needle, but did warn her that it may be hematoma that is already solidified to the point where it will not be able to be withdrawn with a needle. She understands and wishes to proceed. 0.5 cc of 1% lidocaine are used locally to anesthetize the skin. An 18-gauge needle is inserted into the area of interest. A small amount of blood returned only. I do feel that she likely has a hematoma and being that she has had symptoms for nearly 2 weeks this is already congealed and will need to reabsorb. Pressure dressing is applied over the area. Patient will continue to wear the William wrap and follow-up with [facility]. Discharge Plan Triage Chief Complaint: Lower Extremity Injury ED Provider: Dana Anaya Dx/Rx/DC Orders Clinical Impression: Hematoma Instructions: ED Hematoma Prescriptions: No Action bupropion HCl 150 MG tablet sustained-release 12 hr 150 mg PO BID lisinopril [Prinivil] 10 MG tablet 10 mg PO DAILY etonogestrel-ethinyl estradiol [NuvaRing] 1 EACH ring 1 ea VG X1 permethrin 60 GM cream 60 gm TP X1 Qty: 1 0RF naproxen 500 MG tablet 500 mg PO BID Qty: 14 0RF permethrin 5 % cream 1 applic topical Q14D Qty: 60 0RF Rx Instructions: apply second treatment 14 days after first treatment if live insects remain naproxen [Naprosyn] 500 mg tablet 500 mg PO BID PRN (Reason: pain) Qty: 20 0RF prednisone 20 mg tablet 40 mg PO DAILY 5 Days Qty: 10 0RF oxycodone 5 mg tablet 5 mg PO Q8H PRN (Reason: pain) 2 Days Qty: 6 0RF oxycodone-acetaminophen [Percocet] 5-325 mg tablet 1 tab PO Q6H 3 Days Qty: 12 0RF Primary Care Provider: Josh Mazariegos Referrals: Josh Mazariegos MD [Primary Care Provider] - Jeffrey Olivas DO [Med Staff - Active Staff] - As Needed Disposition Disposition: Home, Self Care
[2023-07-24] MEDS: Lidocaine 1% (20 ml mdv) 20 ML Vial INFILT (18:40)
== END 2023-07-24 19:20 | disposition home or self-care (01) ==
PROVIDERS: Emergency Provider Emergency Medicine; PCP Family Medicine; Visit Provider Emergency Medicine
DX: S90.01XA Contusion of right ankle, initial encounter (principal); Z87.891 Personal history of nicotine dependence; I10 Essential (primary) hypertension; Z79.899 Other long term (current) drug therapy; Z79.3 Long term (current) use of hormonal contraceptives
CPT/HCPCS: 10160; 10060; 99282

== ENCOUNTER 2023-09-05 20:13 | Emergency (ER) | payer MEDICAID, SELFPAY ==
[2023-09-05 20:13] VITALS: BP 162/90
[2023-09-05 20:14] VITALS: BP 171/94; PULSE 97; RESP 18; TEMP 36.7; O2SAT 98; BMI 22.1
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
--- NOTE | 2023-09-05 20:40 | NURSING ---
Pt verbalized she does not want to stay and does not want detox. Pt called home to her mom for a ride.
--- NOTE | 2023-09-05 20:42 | ED.RN ---
This nurse spoke with pt about staying for etoh detox. Pt with flight of ideas, and constant rambling. States she does not want to stay and will follow up with her dr, counselor and 180. States she has a safe place to go. This RN called her friend Sean, who said he will be here in 20 minutes to take Nuria to her mothers.
== END 2023-09-05 20:46 | disposition left against medical advice (07) ==
LOC: ED 20:46
PROVIDERS: PCP Family Medicine
DX: F41.9 Anxiety disorder, unspecified (principal)
CPT/HCPCS: 99282

== ENCOUNTER 2023-09-12 18:10 | Emergency (ER) | payer MEDICAID, SELFPAY ==
[2023-09-12 18:11] VITALS: BP 183/84; PULSE 75; RESP 18; TEMP 36.5; O2SAT 99; BMI 37.9
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
[2023-09-12 19:11] VITALS: RESP 20
[2023-09-12 19:26] LABS: Absolute Lymphocyte Count 1.31 X10^3/uL (0.83-4.51); Absolute Neutrophil Count 10.6 X10^3/uL (2.0-7.7); Basophil# 0.03 X10^3/uL; Basophil% 0.2 % (0-1); Eosinophil# 0.09 X10^3/uL; Eosinophils% 0.7 % (0-5); Hematocrit 43.3 % (37-47); Hemoglobin 13.8 g/dL (12.0-15.0); Lymphocyte # 1.31 X10^3/ul (0.83-4.51); Lymphocyte % 10.3 % (19-41); Mean Corp Hgb Conc 31.9 g/dL (32-36); Mean Corpuscular Volume 94.1 fL (81-99); Mean Platelet Vol. 10.1 fl (6.2-12.0); Monocyte# 0.59 X10^3/uL; Monocyte% 4.6 % (0-10); NRBC Flagged by Analyzer 0 % (0-5); Neutrophil # 10.63 X10^3/uL (2.7-7.7); Neutrophil % 83.8 % (47-70); Platelet Count 406 K/mm3 (150-450); RBC Distribution Width CV 13.1 % (11.6-14.6); RBC Distribution Width SD 44.6 fl (35.1-43.9); White Blood Count 12.7 K/mm3 (4.4-11.0)
[2023-09-12 19:39] LABS: Internal QC Validated? YES +Cl - CLEAR BKGD; Pregnancy, Serum, hCG Quali. NEGATIVE Negative; Record Kit Lot#, Serum Preg. 667200
[2023-09-12 19:42] LABS: Alcohol, Blood (Medical)-Serum < 3.0 mg/dL
[2023-09-12 19:44] LABS: Anion Gap 3 (5-15); BUN 16 mg/dL (7-18); BUN/Creat Ratio 22.5 RATIO (10-20); Calcium,Total 9.6 mg/dL (8.5-10.1); Chloride 104 mmol/L (98-107); Creatinine, Serum 0.71 mg/dL (0.55-1.02); EST Glomerular Filtration Rate 92 mL/min (>60); Est Glom Filt Rate - Afr Amer 111 mL/min (>60); Estimated Creatinine Clearance 128.18 ml/min; Glucose 111 mg/dL (74-106); Potassium 3.3 mmol/L (3.5-5.1); Sodium Level 141 mmol/L (136-145)
[2023-09-12 19:58] LABS: Amphetamine Urine VISTA POSITIVE (<1000 ng/mL); Barbiturate Urine VISTA NEGATIVE (< 200 ng/mL); Benzodiazepine Urine VISTA NEGATIVE (< 200 ng/mL); Cocaine Urine VISTA NEGATIVE (< 300 ng/mL); Ecstacy Urine VISTA NEGATIVE (< 500 ng/mL); Methadone Urine VISTA NEGATIVE (< 300 ng/mL); PCP Urine VISTA NEGATIVE (< 25 ng/mL); THC Urine VISTA NEGATIVE (< 50 ng/mL); Vista UDS pH Range 7
[2023-09-12 20:11] VITALS: RESP 20
[2023-09-12] MEDS: LORazepam 1 MG Tablet PO (20:13)
[2023-09-12 22:00] VITALS: BP 169/85
--- NOTE | 2023-09-12 23:14 | EKG12_ITS ---
Test Reason : [facility] [place] Blood Pressure : / mmHG Vent. Rate : 096 BPM Atrial Rate : 096 BPM P-R Int : 148 ms QRS Dur : 072 ms QT Int : 410 ms P-R-T Axes : 055 011 045 degrees QTc Int : 517 ms Normal sinus rhythm Prolonged QT Abnormal ECG Confirmed by EDDI ZURITA, LOVE ([id number]), manager editorial KARLA DOUGLAS ([id number]) on 09/16/2023 12:39:32 PM Referred By: Confirmed By:LOVE MONTAGUE MD
[2023-09-13] VITALS: BP 169/85; PULSE 70; RESP 16; O2SAT 98
[2023-09-13 01:20] LABS: CPK Total, Creatine Kinase 440 U/L (26-192)
[2023-09-13 02:58] VITALS: RESP 14
[2023-09-13 05:02] VITALS: BP 169/85; PULSE 71; RESP 16; O2SAT 98
[2023-09-13 07:00] VITALS: RESP 16
--- NOTE | 2023-09-13 08:25 | ED.RN ---
pt left phone and car unloader in the ed. pt phone and car unloader given to hospital security. pt mother in law contacted and informed that pt was transferred and had left her phone behind. this rn attempted to call care facility to inform her of her phone being left behind, but there was no answer after makeda ringing for 5 minutes.
== END 2023-09-13 07:35 ==
LOC: ED 19:06
PROVIDERS: Physician Assistant; Emergency Provider Emergency Medicine; PCP Family Medicine; Visit Provider Emergency Medicine
DX: F41.9 Anxiety disorder, unspecified (principal); Z87.891 Personal history of nicotine dependence; I10 Essential (primary) hypertension; F32.A Depression, unspecified
CPT/HCPCS: 80048; 80307; 82077; 82550; 84703; 85025; 87811; 93005; 99285

== ENCOUNTER 2024-03-03 15:17 | Emergency (ER) | payer MEDICAID, SELFPAY ==
[2024-03-03 15:17] VITALS: BP 161/89; PULSE 90; RESP 18; TEMP 36.6; O2SAT 96; BMI 25.2
--- NOTE | 2024-03-03 15:35 | ED.RN ---
OFFICER WASLEIA FROM [facility] AT BEDSIDE TAKING REPORT
[2024-03-03] MEDS: Acetaminophen 325 MG Tablet 650 MG PO (15:44)
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
--- NOTE | 2024-03-03 15:50 | RAD_ITS ---
EXAM: XR LEFT RIBS AND AP CHEST, 3 OR MORE VIEWS CLINICAL INDICATION: rib injury TECHNIQUE: Frontal and oblique views of the left ribs and frontal view of the chest. COMPARISON: No relevant prior studies available. FINDINGS: LUNGS AND PLEURAL SPACES: Unremarkable. No consolidation or edema. No pneumothorax. No effusion. HEART: Unremarkable. Cardiac silhouette not enlarged. MEDIASTINUM: Central airways and mediastinal contour are unremarkable. BONES/JOINTS: There is a fracture of the left fifth rib. There also appears to be a fracture of the left ninth rib. There is hardware overlying the thoracic spine. RAD/Ribs Uni Min 3V w/PA Chest IMPRESSION: Fractures of the left fifth and ninth ribs. Electronically Signed: Rubén Posadas MD at 16:16 EDT ,
[2024-03-03] MEDS: oxyCODONE 5 MG Tablet PO (17:01)
[2024-03-03 17:05] VITALS: BP 150/75; PULSE 82; RESP 16; TEMP 36.4; O2SAT 95
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
== END 2024-03-03 17:07 | disposition home or self-care (01) ==
PROVIDERS: Emergency Provider Emergency Medicine; PCP Family Medicine; Visit Provider Emergency Medicine
DX: S22.42XA Multiple fractures of ribs, left side, initial encounter for closed fracture (principal); Z87.891 Personal history of nicotine dependence; Y04.8XXA Assault by other bodily force, initial encounter; S40.021A Contusion of right upper arm, initial encounter; I10 Essential (primary) hypertension
CPT/HCPCS: 71101; 99283

== ENCOUNTER 2024-03-19 13:00 | Emergency (ER) | payer MEDICAID, SELFPAY ==
[2024-03-19 13:02] VITALS: BP 130/72; PULSE 94; RESP 16; TEMP 36; O2SAT 98; BMI 24.6
[2024-03-19] MEDS: 0.9% Normal Saline (1000mL) 1,000 ML 999 ML IV (13:54)
[2024-03-19] MEDS: Mag Hydrox/Al Hydrox/Simeth 30 ML UDC PO (13:54)
[2024-03-19] MEDS: Ondansetron 4 MG/2 ML Vial IV (13:54)
[2024-03-19] MEDS: Ketorolac 15 MG/ML Vial IV (13:55)
[2024-03-19 13:58] LABS: Absolute Lymphocyte Count 1.99 X10^3/uL (0.83-4.51); Absolute Neutrophil Count 4.2 X10^3/uL (2.0-7.7); Basophil# 0.02 X10^3/uL; Basophil% 0.3 % (0-1); Eosinophil# 0.24 X10^3/uL; Eosinophils% 3.5 % (0-5); Hematocrit 38.8 % (37-47); Hemoglobin 12.5 g/dL (12.0-15.0); Lymphocyte # 1.99 X10^3/ul (0.83-4.51); Lymphocyte % 29.2 % (19-41); Mean Corp Hgb Conc 32.2 g/dL (32-36); Mean Corpuscular Hgb 31.3 pg (27.0-32.0); Mean Platelet Vol. 9.1 fl (6.2-12.0); Monocyte# 0.36 X10^3/uL; Monocyte% 5.3 % (0-10); NRBC Flagged by Analyzer 0 % (0-5); Neutrophil % 61.6 % (47-70); Platelet Count 392 K/mm3 (150-450); RBC Distribution Width CV 13.9 % (11.6-14.6); RBC Distribution Width SD 49.7 fl (35.1-43.9); White Blood Count 6.8 K/mm3 (4.4-11.0)
--- NOTE | 2024-03-19 14:00 | RAD_ITS ---
STUDY: X-RAY - RIGHT FOOT CLINICAL: Female, 53 years old. injury TECHNIQUE: 3 view(s) of the foot. COMPARISON: None. FINDINGS: Normal talus, calcaneus, and tarsal bones. Normal visualized subtalar, talonavicular, calcaneocuboid, tarsal and tarsometatarsal articulations. Hyperplastic slightly deformed appearance to the head of the first metatarsal bone which is either due to prior trauma or intervention or resection. Normal remaining metatarsal bones. Normal metatarsophalangeal joint of the great toe. Normal tibial and fibular sesamoid bones. Normal interphalangeal joint of the great toe. Normal phalanges of the great toe. Normal second through fifth metatarsophalangeal joints. Normal interphalangeal joints and phalanges of the lesser toes. The soft tissue structures are unremarkable. There is no demonstrated fracture. RAD/Foot min 3 Views IMPRESSION: No acute process of the foot. Electronically Signed: Juan Jeffrey MD at 14:26 EDT ,
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
[2024-03-19 14:15] LABS: ALB/GLOB Ratio 1.1 RATIO (0.9-2.4); AST(SGOT) 18 U/L (15-37); Alanine Aminotransfer ALT/SGPT 23 U/L (13-56); Albumin, Serum 3.4 g/dL (3.2-5.0); Alkaline Phosphatase 61 U/L (45-117); Anion Gap 9 (5-15); BUN 17 mg/dL (7-18); BUN/Creat Ratio 30.7 RATIO (10-20); Calcium,Total 8.5 mg/dL (8.5-10.1); Chloride 110 mmol/L (98-107); Creatinine, Serum 0.55 mg/dL (0.55-1.02); EST Glomerular Filtration Rate 122 mL/min (>60); Est Glom Filt Rate - Afr Amer 148 mL/min (>60); Estimated Creatinine Clearance 94.78 ml/min; Globulin 3.1 g/dL (2.2-4.2); Glucose 86 mg/dL (74-106); Lipase 34 U/L (13-75); Potassium 3.2 mmol/L (3.5-5.1); Protein, Total 6.5 g/dL (6.4-8.2); Sodium Level 143 mmol/L (136-145)
[2024-03-19 15:11] VITALS: BP 126/68; PULSE 69; RESP 18; TEMP 36.6; O2SAT 100
== END 2024-03-19 15:16 | disposition home or self-care (01) ==
PROVIDERS: Nurse Practitioner; Emergency Provider Emergency Medicine; PCP Family Medicine; Visit Provider Emergency Medicine
DX: R14.0 Abdominal distension (gaseous) (principal); Z87.891 Personal history of nicotine dependence; I10 Essential (primary) hypertension; K21.9 Gastro-esophageal reflux disease without esophagitis; M79.671 Pain in right foot; R07.81 Pleurodynia; Y09 Assault by unspecified means
CPT/HCPCS: 73630; 80053; 83690; 85025; 96361; 96374; 96375; 99284; J7030; A4216; J2405

== ENCOUNTER 2025-01-03 13:14 | Emergency (ER) | payer MEDICAID, SELFPAY ==
[2025-01-03 13:14] VITALS: BP 138/76; PULSE 95; RESP 17; TEMP 36.8; O2SAT 97; BMI 23.8
[2025-01-03 14:03] LABS: Absolute Lymphocyte Count 1.99 X10^3/uL (0.83-4.51); Absolute Neutrophil Count 3.4 X10^3/uL (2.0-7.7); Basophil# 0.03 X10^3/uL; Basophil% 0.5 % (0-1); Eosinophils% 3.4 % (0-5); Hematocrit 38.6 % (37-47); Lymphocyte # 1.99 X10^3/ul (0.83-4.51); Lymphocyte % 33.9 % (19-41); Mean Corp Hgb Conc 33.7 g/dL (32-36); Mean Corpuscular Hgb 31.8 pg (27.0-32.0); Mean Corpuscular Volume 94.4 fL (81-99); Mean Platelet Vol. 9.5 fl (6.2-12.0); Monocyte# 0.26 X10^3/uL; Monocyte% 4.4 % (0-10); NRBC Flagged by Analyzer 0 % (0-5); Neutrophil # 3.39 X10^3/uL (2.7-7.7); Neutrophil % 57.8 % (47-70); Platelet Count 369 K/mm3 (150-450); RBC Distribution Width CV 13.3 % (11.6-14.6); RBC Distribution Width SD 46.1 fl (35.1-43.9); Red Blood Count 4.09 M/mm3 (4.2-5.4); White Blood Count 5.9 K/mm3 (4.4-11.0)
--- NOTE | 2025-01-03 14:12 | EDS_ITS ---
HPI History of Present Illness Chief Complaint: Substance Abuse Narrative Narrative: Patient is a 54-year-old female with past medical history of asthma, hypertension, alcohol abuse, previous substance abuse who presents to the emergency department with hopes of getting alcohol detox. States that she went to [facility] signed up for the program however they sent her here to be further evaluated. Patient states that prior to today she had not had any alcohol in 3 days and had 1 drink today. Patient states that she has not drinking in the past and has felt mildly unwell but has not had any seizures or anything of this nature she states. Patient states that overall she feels okay right now. [facility] Medical History Asthma Hypertension Home Medications ?Medication ?Instructions ?Recorded ?Last Taken ?Type oxycodone 5 mg tablet 5 mg PO TID PRN pain 3 days #9 tabs 03/03/24 Unknown Rx Allergy/AdvReac Type Severity Reaction Status Date / Time erythromycin base AdvReac Other Verified 01/03/25 13:14 hydrocodone (From [place]) AdvReac Nausea/Vom/ Verified 01/03/25 13:14 Diarrhea ibuprofen (From Motrin) AdvReac Nausea/Vom/ Verified 01/03/25 13:14 Diarrhea lorazepam (From Ativan) AdvReac Low blood Verified 01/03/25 13:14 pressure Family History no significant family his Surgical History History of back surgery Social History household members: none Smoking Status: Never smoker substance use type: does not use ROS ROS ED ROS Narrative Constitutional: Denies headache, fevers, chills, lightness, dizzy Eyes: Denies change in vision double vision blurry Cardiovascular: Denies chest pain or palpitations Respiratory: Denies coughing wheezing shortness of breath Abdomen: Denies abdominal pain nausea vomit diarrhea : Denies urinary symptoms Neurological: Denies numbness, did some tingling Musculoskeletal: Denies back pain Skin: Denies rashes or lesions EXAM Physical Exam Narrative Exam Narrative: General: Patient is lying in bed rest comfortably did not appear to be in acute distress Head: Atraumatic, normocephalic Eyes: PERRL bilaterally, EOMI bilateral, no conjunctival injection noted Neck: Soft, supple, trachea midline Cardiovascular: Regular rate and rhythm no murmurs gallops rubs noted Respiratory: Clear to auscultation bilaterally Abdomen: Soft, nondistended, nontender to palpation Extremities: +5/5 strength noted in the bilateral upper and lower extremities Neurological: Patient follow commands and that she was at [facility] years 2024 Skin: Warm, dry, intact no rashes or lesions noted Const Vital Signs: 01/03/25 13:14 01/03/25 14:14 01/03/25 15:00 Temperature 98.2 F Temperature Source Temporal Pulse Rate 95 88 Respiratory Rate 17 Blood Pressure 138/76 H 172/90 H 163/83 H Blood Pressure Mean 96 117 109 Pulse Ox 97 98 97 Oxygen Delivery Method Room Air Room Air Room Air 01/03/25 16:00 Temperature Temperature Source Pulse Rate 87 Respiratory Rate 16 Blood Pressure 160/78 H Blood Pressure Mean 105 Pulse Ox 99 Oxygen Delivery Method Room Air MDM MDM MDM Narrative Medical decision making narrative: Patient is a 54-year-old female who presented to the emergency department the chief complaint of wanting alcohol detox. On the differential diagnose includes but not limited to alcohol abuse, polysubstance abuse. Once workup is obtained reviewed she will be reevaluated. Patient CBC reviewed showed no evidence leukocytosis white blood count 5.9, hemoglobin stable 13, plate count was noted be 369. Patient sodium normal 141, potassium was 3.3, creatinine normal at 0.58. Patient's AST and ALT are 2014 respectively. Patient's test negative. Patient's drug screen positive for presumptive amphetamines. Patient alcohol level was 31.3. At this point time patient has been medically cleared. Social work was consulted to reach out to [facility] for placement at this time as I do not feel it is necessary for the patient to be admitted here prior to placement there. Once again the patient has not had her normal amount of drinks in approximately 3 days she had 1 drink prior to arrival here. Patient states that she has never gone through delirium tremens or had seizures. Patient case was signed out to oncoming provider to make ultimate disposition see their note for the details. Lab Data Labs: Laboratory Results - last 24 hr 01/03/25 01/03/25 01/03/25 13:46 14:21 15:00 WBC 5.9 RBC 4.09 L Hgb 13.0 Hct 38.6 MCV 94.4 MCH 31.8 MCHC 33.7 RDW Std Deviation 46.1 H RDW Coeff of Damián 13.3 Plt Count 369 MPV 9.5 Immature Gran % (Auto) 0.000 Neut % (Auto) 57.8 Lymph % (Auto) 33.9 [place] % (Auto) 4.4 Eos % (Auto) 3.4 Baso % (Auto) 0.5 Absolute Neuts (auto) 3.4 Absolute Lymphs (auto) 1.99 Nucleated RBC % 0 Sodium 141 Potassium 3.3 Chloride 102 Carbon Dioxide 26.2 Anion Gap 13 BUN 13 Creatinine 0.58 L Estim Creat Clear Calc 87.66 Est GFR (MDRD) Non-Af 108 BUN/Creatinine Ratio 21.9 H Glucose 98 Calcium 9.9 Total Bilirubin 0.19 AST 20 ALT 14 Alkaline Phosphatase 56 Total Protein 7.0 Albumin 4.4 Globulin 2.6 Albumin/Globulin Ratio 1.7 Serum , Qual NEGATIVE Urine Opiates Screen NEGATIVE U Buprenorphine Qual NEGATIVE Ur Oxycodone Screen NEGATIVE Urine Methadone Screen NEGATIVE Urine Fentanyl Screen NEGATIVE Ur Barbiturates Screen NEGATIVE Ur Phencyclidine Scrn NEGATIVE Ur Amphetamines Screen PRESUMTIVE POSITIVE U Benzodiazepines Scrn NEGATIVE Urine Cocaine Screen NEGATIVE U Cannabinoids Screen NEGATIVE Ethyl Alcohol 31.3 H Discharge Plan Triage Chief Complaint: Substance Abuse ED Provider: Rico Quick Dx/Rx/DC Orders Clinical Impression: Alcohol abuse Prescriptions: No Action oxycodone 5 mg tablet 5 mg PO TID PRN (Reason: pain) 3 Days Qty: 9 0RF Primary Care Provider: Josh Mazariegos Referrals: Josh Mazariegos MD [Primary Care Provider] - Print Language: [place]an
[2025-01-03 14:14] VITALS: BP 172/90; PULSE 88; O2SAT 98
[2025-01-03 14:33] LABS: Alcohol, Blood (Medical)-Serum 31.3 mg/dL (<=10.0)
[2025-01-03 14:34] LABS: Internal QC Validated? YES +Cl - CLEAR BKGD; Pregnancy, Serum, hCG Quali. NEGATIVE Negative
[2025-01-03 15:00] VITALS: BP 163/83; O2SAT 97
[2025-01-03 15:11] LABS: AST(SGOT) 20 U/L (<=31); Alanine Aminotransfer ALT/SGPT 14 U/L (<=34); Alkaline Phosphatase 56 U/L (35-104); Anion Gap 13 (5-15); BUN 13 mg/dL (4-19); BUN/Creat Ratio 21.9 RATIO (10-20); Calcium,Total 9.9 mg/dL (7.6-11.0); Carbon Dioxide 26.2 mmol/L (21.0-32.0); Chloride 102 mmol/L (98-108); Creatinine, Serum 0.58 mg/dL (0.70-1.20); EST Glomerular Filtration Rate 108 (>60); Estimated Creatinine Clearance 87.66 ml/min (50-250); Glucose 98 mg/dL (70-99); Potassium 3.3 mmol/L (3.3-5.1); Sodium Level 141 mmol/L (133-145); Total Bilirubin 0.19 mg/dL (0.00-1.30)
[2025-01-03 15:23] LABS: ALB/GLOB Ratio 1.7 RATIO (0.9-2.4); Albumin, Serum 4.4 g/dL (3.5-5.0); Globulin 2.6 g/dL (2.2-4.2)
[2025-01-03 15:49] LABS: Amphetamine Urine PRESUMTIVE POSITIVE (<1000 ng/mL); Barbiturate Urine NEGATIVE (< 200 ng/mL); Benzodiazepine Urine NEGATIVE (< 200 ng/mL); Buprenorphine Urine NEGATIVE (< 200 ng/mL); Cocaine Urine NEGATIVE (< 300 ng/mL); Fentanyl, Urine NEGATIVE; Methadone Urine NEGATIVE (< 300 ng/mL); Opiates Urine NEGATIVE (< 300 ng/mL); Oxycodone, Urine NEGATIVE (< 100 ng/mL); PCP Urine NEGATIVE (< 25 ng/mL); THC Urine NEGATIVE (< 50 ng/mL)
[2025-01-03 16:00] VITALS: BP 160/78; PULSE 87; RESP 16; O2SAT 99
[2025-01-03 17:00] VITALS: BP 146/69; O2SAT 99
[2025-01-03 17:02] VITALS: BP 146/69; PULSE 87; RESP 16; TEMP 36.8; O2SAT 99
--- NOTE | 2025-01-03 19:02 | CM.ED ---
Social work Reason for referral: discharge planning Referral source: Dr. Quick/utility bagger Pepper This SW was approached by utility bagger Pepper stating patient could return to [facility] due to Dr. Quick stating patient was medically clear and not in current need of detox. This SW entered patient's room, introducing self and role at [facility]. Patient confirmed staying at [facility] and needing to get a ride back there. This SW called Kenya at [facility] ([phone]) and stated patient's need to return; Kenya forwarded this SW to a member of the residential team and SW left a voicemail requesting a return call. After waiting 30 minutes, GHANSHYAM called [facility] again and spoke with Kacie who stated Jeremy Swapna was attempting to find a staff to come and get patient from [facility] ED. Patient and utility bagger Pepper updated. No other needs identified. Liv Ferrer, DRIVER MATERIAL HANDLER, NUCLEAR RADIOLOGIST
== END 2025-01-03 17:11 | disposition other institution (70) ==
PROVIDERS: Emergency Provider Emergency Medicine; PCP Family Medicine; Visit Provider Emergency Medicine
DX: F10.10 Alcohol abuse, uncomplicated (principal); I10 Essential (primary) hypertension; Y90.1 Blood alcohol level of 20-39 mg/100 ml
CPT/HCPCS: 80053; 80307; 82077; 84703; 85025; 99282; A4216